=== PATIENT | female | born 1940 | race Caucasian/White ===

== ENCOUNTER 2017-07-21 15:12 | Inpatient (IN) | payer MEDICARE, BC ==
[2017-07-21] VITALS (9 sets, daily range): BP systolic 129–195; BP diastolic 72–85; PULSE 57–66; RESP 16–20; TEMP 98.2–98.8; O2SAT 93–99
[2017-07-21] MEDS ORDERED: SODIUM CHLOR 0.9% 1000 ML INJ 1,000 ML IV ONE (15:40)
[2017-07-21] MEDS ORDERED: NITROGLYCERIN 0.4 MG SL 25 TABS/BTL SL STA (15:40)
[2017-07-21] MEDS ORDERED: HEPARIN SODIUM - IV 10,000 UNITS/10 ML VIAL IV PUSH STA (15:40)
[2017-07-21] MEDS ORDERED: ASPIRIN 81 MG CHEW TAB PO STA (15:40)
[2017-07-21] MEDS ORDERED: NITROGLYCERIN 2% OINT 1 GM PACKET TOPICAL ONE (15:45)
[2017-07-21] MEDS ORDERED: SODIUM CHLORIDE 0.9% FLUSH 10 ML FLUSH IVF PRN (15:45)
[2017-07-21] MEDS: SODIUM CHLOR 0.9% 1000 ML INJ 1,000 ML IV SCH ×2 (15:47→21:36)
--- NOTE | 2017-07-21 15:51 | PD ---
HPI Chief Complaint: chest pain Time Seen by Provider: 15:21 Travel History International Travel<30 days: No Contact w/Intl Traveler<30days: No Traveled to known affect area: No History of Present Illness HPI 77-year-old female complains of chest pain. Patient states that she started having upper back pain last night which last about 2 hours. Patient states that the pain was dull aching pain and it is sharp pain, lasted 2 hours and resolved. Patient woke up this morning with heaviness across anterior chest, with radiation to the jaw and bilateral arms. Patient states that the discomfort has been persistent since this morning. Patient denies any nausea vomiting diaphoresis. Patient denies any coughing congestion fever chills. Patient denies any history of CAD. Patient has history of arrhythmia in the past. Patient denies history hypertension. Patient has history of diabetes under diet control. Patient has history of hyperlipidemia. Patient is a nonsmoker. Patient has history of hypothyroidism and taking Synthroid. Patient is on the Lexapro. Patient is taking Protonix for GI issues recently. Patient states that she has left low quadrant abdominal discomfort with some intermittent nausea vomiting last night. Patient has history of passing loose stool recently and awaiting GI consultation and endoscopy. [facility] Social History Tobacco Use: No Allergies-Medications (Allergen,Severity, Reaction): Coded Allergies: doxycycline (Verified Allergy, Mild, 07/21/17) Reported Meds & Prescriptions Reported Meds & Active Scripts Active Reported Synthroid (Levothyroxine Sodium) 75 Mcg Tab 75 Mcg PO DAILY Lexapro (Escitalopram Oxalate) 10 Mg Tab 10 Mg PO DAILY Protonix (Pantoprazole Sodium) 40 Mg Tab 40 Mg PO DAILY Review of Systems General / Constitutional: No: Fever Eyes: No: Visual changes HENT: No: Headaches Cardiovascular: Positive: Chest Pain or Discomfort Respiratory: No: Shortness of Breath Gastrointestinal: Positive: Nausea, Vomiting, Abdominal Pain Genitourinary: No: Dysuria Musculoskeletal: No: Pain Skin: No Rash Neurologic: No: Weakness Psychiatric: No: Depression Endocrine: No: Polydipsia Hematologic/Lymphatic: No: Easy Bruising Physical Exam Narrative GENERAL: Well-nourished, well-developed patient. SKIN: Focused skin assessment warm/dry. HEAD: Normocephalic. EYES: No scleral icterus. No injection or drainage. NECK: Supple, trachea midline. No JVD or lymphadenopathy. CARDIOVASCULAR: Regular rate and rhythm without murmurs, gallops, or rubs. RESPIRATORY: Breath sounds equal bilaterally. No accessory muscle use. GASTROINTESTINAL: Abdomen soft, non-tender, nondistended. MUSCULOSKELETAL: No cyanosis, or edema. BACK: Nontender without obvious deformity. No CVA tenderness. Neurologic exam normal. Data Data Last Documented VS Vital Signs Date Time Temp Pulse Resp B/P (MAP) Pulse Ox O2 Delivery O2 Flow Rate FiO2 07/21/17 15:45 60 20 173/72 (105) 96 Room Air 07/21/17 15:15 98.8 Orders Orders Electrocardiogram (07/21/17 15:35) Complete Blood Count With Diff (07/21/17 15:35) Comprehensive Metabolic Panel (07/21/17 15:35) Creatine Kinase (Cpk) (07/21/17 15:35) Troponin I (07/21/17 15:35) Prothrombin Time / Inr (Pt) (07/21/17 15:35) Act Partial Throm Time (Ptt) (07/21/17 15:35) Thyroid Stimulating Hormone (07/21/17 15:35) Chest, Single Ap (07/21/17 15:35) Iv Access Insert/Monitor (07/21/17 15:35) Ecg Monitoring (07/21/17 15:35) Oximetry (07/21/17 15:35) Oxygen Administration (07/21/17 15:40) Sodium Chlor 0.9% 1000 Ml Inj (Ns 1000 M (07/21/17 15:40) Sodium Chloride 0.9% Flush (Ns Flush) (07/21/17 15:45) Aspirin Chew (Aspirin Chew) (07/21/17 15:40) Nitroglycerin Sl (Nitrostat Sl) (07/21/17 15:40) Heparin Inj (Heparin Inj) (07/21/17 15:40) Nitroglycerin 2% Oint (Nitroglycerin 2% (07/21/17 15:45) Sodium Chlor 0.9% 1000 Ml Inj (Ns 1000 M (07/21/17 15:45) Admit Order (Ed Use Only) (07/21/17 15:43) Magnesium (Mg) (07/21/17 15:40) Labs Laboratory Tests Test 07/21/17 15:40 White Blood Count 10.4 TH/MM3 Red Blood Count 4.74 MIL/MM3 Hemoglobin 14.4 GM/DL Hematocrit 43.9 % Mean Corpuscular Volume 92.6 FL Mean Corpuscular Hemoglobin 30.3 PG Mean Corpuscular Hemoglobin Concent 32.7 % Red Cell Distribution Width 12.9 % Platelet Count 311 TH/MM3 Mean Platelet Volume 7.8 FL Neutrophils (%) (Auto) 73.5 % Lymphocytes (%) (Auto) 19.8 % Monocytes (%) (Auto) 5.2 % Eosinophils (%) (Auto) 1.0 % Basophils (%) (Auto) 0.5 % Neutrophils # (Auto) 7.6 TH/MM3 Lymphocytes # (Auto) 2.1 TH/MM3 Monocytes # (Auto) 0.5 TH/MM3 Eosinophils # (Auto) 0.1 TH/MM3 Basophils # (Auto) 0.1 TH/MM3 CBC Comment DIFF FINAL Differential Comment Prothrombin Time 10.8 SEC Prothromb Time International Ratio 1.1 RATIO Activated Partial Thromboplast Time 27.5 SEC Blood Urea Nitrogen 11 MG/DL Creatinine 0.76 MG/DL Random Glucose 135 MG/DL Total Protein 7.0 GM/DL Albumin 3.5 GM/DL Calcium Level 8.8 MG/DL Magnesium Level 2.1 MG/DL Alkaline Phosphatase 87 U/L Aspartate Amino Transf (AST/SGOT) 23 U/L Alanine Aminotransferase (ALT/SGPT) 22 U/L Total Bilirubin 0.9 MG/DL Sodium Level 140 MEQ/L Potassium Level 3.7 MEQ/L Chloride Level 102 MEQ/L Carbon Dioxide Level 28.8 MEQ/L Anion Gap 9 MEQ/L Estimat Glomerular Filtration Rate 74 ML/MIN Total Creatine Kinase 82 U/L Troponin I 1.10 NG/ML Thyroid Stimulating Hormone 3rd Gen 2.430 uIU/ML MDM Medical Decision Making Medical Screen Exam Complete: Yes Emergency Medical Condition: Yes Differential Diagnosis Differential diagnosis including STEMI, musculoskeletal, GI issues. Narrative Course 77-year-old female with chest pain. Patient has also has some GI symptoms recently. EKG with mild ST elevation anterior leads. I spoke with Dr. Eddy, molasses coloring operator on-call. Advised STEMI alert. Patient was given aspirin 325 mg by mouth, nitroglycerin paste 1 inch and chest wall, heparin 4000 units IV given. Patient will be transferred urgently to the main hospital for cardiac catheter procedure. Diagnosis Primary Impression: STEMI (ST elevation myocardial infarction) Qualified Codes: I21.02 - ST elevation (STEMI) myocardial infarction involving left anterior descending coronary artery Admitting Information Admitting Physician Requests: Admit Nick Darnell MD Jul 21, 2017 15:51
--- NOTE | 2017-07-21 15:56 | RADRPT ---
EXAM DATE/TIME: 07/21/2017 15:41 [place] COMPARISON: No previous studies available for comparison. INDICATIONS : Stemmi alert MEDICAL HISTORY : None. SURGICAL HISTORY : None. ENCOUNTER: Initial ACUITY: 1 day PAIN SCORE: 4/10 LOCATION: Bilateral chest FINDINGS: A single view of the chest demonstrates the lungs to be symmetrically aerated without evidence of mas s, infiltrate or effusion. The cardiomediastinal contours are unremarkable. Osseous structures are intact. CONCLUSION: No acute disease. Brad Blel MD on July 21, 2017 at 15:54 Board Certified Radiologist. This report was verified electronically.
[2017-07-21 15:58] LABS: AUTOMATED NEUTROPHIL # 7.6 TH/MM3 (1.8-7.7); BASOPHIL # 0.1 TH/MM3 (0-0.2); BASOPHIL % 0.5 % (0.0-2.0); EOSINOPHIL # 0.1 TH/MM3 (0-0.4); HEMATOCRIT 43.9 % (35.0-46.0); HEMO FLAGS DIFF FINAL; LYMPH % 19.8 % (9.0-44.0); LYMPHOCYTE # 2.1 TH/MM3 (1.0-4.8); MEAN CELL VOLUME 92.6 FL (80.0-100.0); MEAN CORPUSCULAR HEMOGLOBIN 30.3 PG (27.0-34.0); MEAN CORPUSCULAR HGB CONC 32.7 % (32.0-36.0); MONO % 5.2 % (0.0-8.0); NEUT % 73.5 % (16.0-70.0); PLATELET COUNT 311 TH/MM3 (150-450); RED BLOOD COUNT 4.74 MIL/MM3 (4.00-5.30); RED CELL DISTRIBUTION WIDTH 12.9 % (11.6-17.2); WHITE BLOOD COUNT 10.4 TH/MM3 (4.0-11.0)
[2017-07-21 16:06] LABS: CHLORIDE 102 MEQ/L (98-107); POTASSIUM 3.7 MEQ/L (3.5-5.1); SODIUM (NA) 140 MEQ/L (136-145)
[2017-07-21 16:11] LABS: ANION GAP 9 MEQ/L (5-15); APTT (PATIENT) 27.5 SEC (24.3-30.1); BICARBONATE 28.8 MEQ/L (21.0-32.0); INTERNATIONAL NORMALIZED RATIO 1.1 RATIO; PROTHROMBIN TIME - PATIENT 10.8 SEC (9.8-11.6)
[2017-07-21 16:12] LABS: BLOOD UREA NITROGEN 11 MG/DL (7-18)
[2017-07-21 16:14] LABS: ALT (GPT) 22 U/L (10-53); AST (GOT) 23 U/L (15-37)
[2017-07-21 16:15] LABS: GLOMERULAR FILTRATION RATE 74 ML/MIN (>89)
[2017-07-21 16:16] LABS: TOTAL BILIRUBIN ADULT 0.9 MG/DL (0.2-1.0)
[2017-07-21 16:17] LABS: ALKALINE PHOSPHATASE 87 U/L (45-117)
[2017-07-21 16:18] LABS: MAGNESIUM 2.1 MG/DL (1.5-2.5)
[2017-07-21] MEDS ORDERED: HEPARIN-NS/PF INJ 1,000 ML ONE (16:19)
[2017-07-21] MEDS ORDERED: MIDAZOLAM HCL 2 MG/2 ML VIAL ONE (16:19)
[2017-07-21] MEDS ORDERED: LEXA10TA PO (16:20)
[2017-07-21] MEDS ORDERED: LEVO.075 PO (16:20)
[2017-07-21] MEDS ORDERED: NITROGLYCERIN INJ 5 ML ONE (16:20)
[2017-07-21] MEDS ORDERED: HEPARIN SODIUM - IV 10,000 UNITS/10 ML VIAL ONE (16:20)
[2017-07-21] MEDS ORDERED: PROT40TA PO (16:20)
[2017-07-21 16:33] LABS: CREATINE KINASE 82 U/L (26-192)
[2017-07-21] MEDS ORDERED: BIVALIRUDIN 250 MG VIAL ONE (16:50)
--- NOTE | 2017-07-21 17:02 | MB ---
cc: CHACORTA ROLAND DATE OF CONSULTATION: 07/21/2017. REASON FOR CONSULTATION: Cardiac consultation for S-T elevation myocardial infarction. HISTORY OF PRESENT ILLNESS: This is a 77-year-old female who presented to the emergency department with acute onset of chest pain. She states that she developed a chest heaviness with radiation towards her jaw her back and bilateral arms early this morning. It became worse and she presented to the emergency room. There she had some S-T elevation anterior leads with T wave inversions. She denies any prior history of known heart disease, arrhythmia. She does have a history of diabetes. Given the electrocardiographic changes and ongoing chest pain symptoms, a STEMI alert was activated and she was transferred emergently for cardiac catheterization. PAST MEDICAL HISTORY: Past medical history as mentioned above: 1. Diabetes. ALLERGIES: DOXYCYCLINE. SOCIAL HISTORY: Denies any alcohol, tobacco or drug use. FAMILY HISTORY: Denies any family history of early coronary artery disease or sudden cardiac in the family. REVIEW OF SYSTEMS: The twelve-point review of systems was performed and is negative unless otherwise noted in the history of present illness. PHYSICAL EXAMINATION: VITAL SIGNS: Temperature 98, heart rate 60, blood pressure is 173/72 mmHg. GENERAL: Alert and oriented times three and in no acute distress. HEAD, EYES, EARS, NOSE, THROAT: The pupils are reactive to light and accommodation. Extraocular muscles are intact. NECK: No elevation in jugular venous distention. No thyromegaly or lymphadenopathy. No carotid bruits. LUNGS: Clear to auscultation bilaterally. CARDIOVASCULAR: Regular rate and rhythm without murmurs, rubs or gallops. ABDOMEN: Nontender, nondistended. Good bowel sounds. No hepatosplenomegaly. EXTREMITIES: Show no clubbing, cyanosis or edema. Good peripheral pulses. NEUROLOGICAL EXAMINATION: Cranial nerves are intact. Motor and sensory grossly intact. LABS: WBCs 10.4, hemoglobin 14.4, platelet count is 311,000. INR is 1.1. Sodium 140, potassium 3.7, BUN 11, creatinine 0.76. Troponin pending. ASSESSMENT: 1. S-T elevation myocardial infarction. 2. Diabetes. PLAN: Given the patient's ongoing symptoms and EKG, will transfer over emergently for cardiac catheterization and possible revascularization. Risks, benefits, and alternatives were discussed with the patient. The patient understood and consented to the procedure. MD VALERIO Salinas /4:33 PM /4:45 PM
[2017-07-21] MEDS ORDERED: CLOPIDOGREL 300 MG TAB ONE (17:11)
[2017-07-21] MEDS ORDERED: ONDANSETRON HCL 4 MG/2 ML VIAL IVP PRN (17:15)
[2017-07-21] MEDS ORDERED: MORPHINE SULFATE 4 MG/ML INJ IV PUSH PRN (17:15)
[2017-07-21] MEDS ORDERED: MISC INFORMATION XX ONE (17:15)
[2017-07-21] MEDS ORDERED: oxyCODONE/ACETAMINOPHEN 10 MG/325 MG TAB PO PRN (17:15)
[2017-07-21] MEDS ORDERED: BACITRACIN OINT 0.9 GM PKT TOP ONE (17:15)
[2017-07-21] MEDS ORDERED: TEMAZEPAM 15 MG CAP PO PRN (17:15)
[2017-07-21] MEDS ORDERED: LIDOCAINE 2% JELLY 30 ML TUBE TOP PRN (17:15)
[2017-07-21] MEDS ORDERED: oxyCODONE/ACETAMINOPHEN 5 MG/325 MG TAB PO PRN (17:15)
[2017-07-21] MEDS ORDERED: ASPIRIN 81 MG CHEW TAB PO SCH (17:15)
--- NOTE | 2017-07-21 17:41 | CATHPROC ---
[employer] HIS Report Study Information Study Number Admission Scheduled Start Study Start [id number] Jul 21 2017 3:47PM 07/21/2017 Jul 21 2017 4:19PM [place] [facility] Cardiac Catheterization Admit Source Facility Department Transfer in from another acute care facility [facility] Spa Consultant Physician and Clinical Staff Initial Justin Patten Financial Services Professional Kimmy Florian BSN Financial Services Professional Stamper, Catherine Recorder Tiffanie Durand,OPERATING ROOM TECH TECH2 Scrub Hosterman, Les,RT(R) Procedures Performed Procedure Location (Site) Vessel Name Coronary Angiograms LCA Left Coronary Coronary Angiograms RCA Right Coronary PTCA DIAG1 Ost Left Coronary PTCA LAD Mid Left Coronary Stent LAD Mid Left Coronary Wire insertion Fem Art (right) Femoral Art Wire insertion Radial (right) Radial Art. Equipment Time Paper Final Inspector Description Size Mfg Part Number Used/Scraped COPILOT VALVE, BLEEDBACK [id number] 16:24 [employer] Used CONTROL *[id number] COPILOT VALVE, BLEEDBACK [id number] 16:48 [employer] Used CONTROL *[id number] TRANSDUCER, TRUWAVE [id number] 16:44 JAMES RODRIGUEZ * Used W/STOCKCOCK *[id number] 17:04 [employer] BALLOON, 2.0 8MM EMERGE MR 2.0 8MM Used *[id number] [phone] *[id number] *[id number] [phone] *[id number] 16:44 [employer] (Inspect Manager) INDUSTRIES PACK, CCL CUSTOM * Used *[id number] 16:44 [employer] SUPPORT, ARTERIAL ADULT 78228 *[id number] Used [id number] 16:44 [employer] (Inspect Manager) PACER PEN, SKIN DUAL W/ RULER * Used *[id number] 16:50 [employer] BALLOON, 2.5 X 12MM EUPHORA 12MM Used *[id number] 17:00 [employer] STENT, 2.5 18 INTEGRITY 2.5 18 Used *[id number] 16:59 [employer] 30 RISA INDEFLATOR Used *[id number] BAND, RADIAL COMPRESSION TR [id number] 17:11 [employer] MEDICAL 24CM Used SHORT 24 *[id number] SHEATH, FR6 RADIAL PRELUDE 16:44 [employer] FR 6 [id number] Used EASE 11CM [id number] 16:44 [employer] WIRE, EXCHANGE 260CM 3MMJ 260CM Used *[id number] 16:24 [employer] OMNIPAQUE, 350 MG, 150ML 150ML [id number] Used [id number] 16:44 [employer] BLANKET,WARM AIR CCL * Used *[id number] WIRE, RUNTHROUGH NS FLOPPY [id number] 16:51 [employer] 180CM Used .014 180CM *[id number] Equipment Model, Serial, Lot Number and Expiration Data Description Model Number Serial Number Lot Number Expiration Date BALLOON, 2.0 8MM EMERGE MR [id number] 01-27-2020 STENT, 2.5 18 INTEGRITY [id number] 02-14-2019 History: Allergies Allergy Reaction doxycycline History: Risk Factors Family History of Hypertension Dyslipidemia Previous SC Previous Heart Failure Premature CAD Yes Yes No No No Prior Valve Prior PCI Prior CABG Surgery No No No Cerebrovascular Peripheral Artery Chronic Lung On Dialysis Diabetes Disease Disease Disease No No No No No History: Stress Tests Stress or Imaging Studies Performed No History: Other Disease Selection Items Depression Gerd History: Other Current Smoker No Labs Hgb (g/dl) Hct (%) RBC (MIL/MM3) WBC (l/cumm) Platelets (thousands) 11.60-17.00 35.00-51.00 4.00-5.90 4.00-11.00 150.00-450.00 14.4 43.9 4.7 10.4 311 Glucose (mg/dl) BUN (mg/dl) Creatinine (mg/dl) BUN:Creatinine (1:x) 74.00-106.00 7.00-18.00 0.50-1.30 10.00-20.00 135 11 0.7 15.7 Na (meq/l) K (meq/l) Cl (meq/l) CO2 (mmol/L) Ca (mg/dl) 136.00-145.00 3.50-5.10 98.00-107.00 21.00-32.00 8.50-10.10 140 3.7 102 28.8 8.8 PT (sec) PTT (sec) INR (PTT:PT) 9.80-11.60 24.30-30.10 0.90-1.10 10.8 27.5 1.1 Troponin I (ng/ml) CPK (u/l) CPK-MB (ng/ML) 0.02-0.05 26.00-308.00 0.50-3.60 1.1 82 Not Drawn Medication Medication Total Dose (Bolus/Oral) Medication Total Dosage/Unit 1% XYLOCAINE 20 mL ANGIOMAX BOLUS 9 mL FENTANYL 50 mcg NTG (IC) 500 mcg PLAVIX 600 mg VERSED 2 mg Medications (Bolus/Oral) Medication Time Given Dosage/Unit Administered By Reason VERSED 07/21/2017 4:41:25 PM 2 mg Catherine Zhong 2 mg VERSED given in lab by Catherine Zhong in Right Antecubital via Peripheral IV. Ordered by Justin Eddy. 1% XYLOCAINE 07/21/2017 4:41:40 PM 20 mL Justin Eddy 20 mL 1% XYLOCAINE given in lab by Justin Eddy in Right Radial via Subcutaneous. Ordered by Justin Eddy. FENTANYL 07/21/2017 4:43:00 PM 50 mcg Roderick Zhongrra 50 mcg FENTANYL given in lab by Catherine Zhong in Right Antecubital via Peripheral IV. Ordered by Justin Chambers. NTG (IC) 07/21/2017 4:43:53 PM 100 mcg Justin Eddy 100 mcg NTG (IC) given in lab by Justin Eddy in Right Radial via Intra-arterial. Ordered by Justin Eddy. ANGIOMAX BOLUS 07/21/2017 4:53:04 PM 9 mL Roderick Zhongrra 9 mL ANGIOMAX BOLUS given in lab by Catherine Zhong in Right Antecubital via Peripheral IV. Ordered b y Justin Eddy. NTG (IC) 07/21/2017 5:05:55 PM 200 mcg Justin Eddy 200 mcg NTG (IC) given in lab by Justin Eddy via Intra-coronary. Ordered by Justin Eddy. NTG (IC) 07/21/2017 5:09:51 PM 200 mcg Justin Eddy 200 mcg NTG (IC) given in lab by Justin Eddy via Intra-coronary. Ordered by Justin Eddy. PLAVIX 07/21/2017 5:19:34 PM 600 mg Justin Eddy 600 mg PLAVIX given in lab by Justin Eddy via Oral. Ordered by Justin Eddy. Medication (Drip) Medication Time Given Dosage/Unit Concentration/Unit Diluent (ml) Solution ANGIOMAX DRIP 07/21/2017 4:54:11 PM 1.752 mg/kg/hr 250 mg 50 NaCl .9 1.752 mg/kg/hr ANGIOMAX DRIP given in lab by Kimmy Florian BSN in Right Antecubital via Periph eral IV. Pump/Drip Flow = 21.2 ml/hr using NaCl .9 with a concentration of 250 mg in 50 ml. Ordered by Justin Eddy. IV Solutions 07/21/2017 4:39:03 PM 0 mL (IV) 500 NaCl .9 IV Solutions given in lab by Catherine Zhong in Right Antecubital via Peripheral IV. Pump/Drip Flow = 20 ml/hr using NaCl .9. Ordered by Justin Eddy. Initial Case Assessment Cardiovascular HR Rhythm NIBP Chest Pain 64 sr 157/75 0 Circulatory - Right Pulses Dorsalis Pedis Femoral Radial 3 3 3 Scale (0,1,2,3,4,d) Scale (0,1,2,3,4,d) Neurological State Oriented to time-place- Alert Moves all extremities person Respiration - General Respiration Rate SpO2 (%) O2 (lpm) (B/min) 11 97 2 Final Case Assessment Cardiovascular HR Rhythm NIBP Chest Pain 57 sb 168/75 0 Circulatory - Right Pulses Dorsalis Pedis Femoral Radial 3 3 3 Scale (0,1,2,3,4,d) Scale (0,1,2,3,4,d) Neurological State Oriented to time-place- Alert Moves all extremities person Respiration - General Respiration Rate SpO2 (%) O2 (lpm) (B/min) 12 96 2 Chronological Log Time Study Chronological Log 16:25:29 MD arrived. 16:30:05 Patient arrived directly from PO ER. 16:30:17 Patient Name, D.O.B, / Armband Verified By R.N. 16:30:19 Consent signed by the physician and the patient and verified by the Spa Consultant staff. 16:30:20 Pre-op and post- op instructions given; patient acknowledges understanding of instructions. 16:30:21 Verbal Stimulation=2 Physical Stimulation=2 Airway=2 Respiration=2 TOTAL=8. (0=absent, 1=li mited, 2=present) Vitals capture started with the following parameters, Patient=Adult, Interval=5 min, Initial Pr qilgwg=033 mmHg, 16:38:34 Deflation Rate=5 mmHg, Cuff placed on Left Arm 16:38:50 Presedation assessment performed by Spa Consultant RN. 16:38:52 Patient has been NPO for More than 6Hrs. 16:38:54 Skin Breakdown-none 16:38:56 Disposable Defibrillator Pads Placed On Patient. 16:38:57 Tisha Prominences Protected 16:39:00 A # 18 IV was noted in the Antecubital (right). Grade = patent 16:39:02 A # 20 IV was noted in the Antecubital (left). Grade = patent IV Solutions given in lab by Catherine Zhong in Right Antecubital via Peripheral IV. Pump/Drip Flow = 20 ml/hr using 16:39:03 NaCl .9. Ordered by Justin Eddy. 16:39:04 History and physical on the chart or being dictated. Assessment: Initial Case, HR=64 BPM, Rhythm=sr, RRWV=860/75 mmhg, Chest Pain=0 Right Pulses: Lucian Ped=3, Femoral=3, Radial=3 16:39:07 Neurological: State=Alert, Ox3, GUO Respiration: Resp=11 B/min, SpO2=97 %, O2=2 lpm 16:39:12 Reference ECG taken 16:39:18 HR=62 bpm, TUTB=743/75 mmhg, SpO2=96.0 %, Resp=14 B/min, Pain=0, Marcos=2 Time Out. Correct patient, correct procedure, correct physician, power injector loaded, or not loaded with contrast with 16:40:09 surgical team present. Time Out Concurred by MD and individual staff in procedure. 16:40:50 Right groin and right wrist prepped with 2% chlorhexidine, and draped after a 3 min. waitin g time. 16:41:25 2 mg VERSED given in lab by Catherine Zhong in Right Antecubital via Peripheral IV. Ordered by Justin Eddy. 16:41:38 Case Start 16:41:40 20 mL 1% XYLOCAINE given in lab by Justin Eddy in Right Radial via Subcutaneous. Ordered by Justin Eddy. 16:42:29 Pressure channel 1 zeroed. 16:43:00 50 mcg FENTANYL given in lab by Catherine Zhong in Right Antecubital via Peripheral IV. Ord ered by Justin Eddy. 16:43:19 Access site was Radial Artery. Right 16:43:53 100 mcg NTG (IC) given in lab by Justin Eddy in Right Radial via Intra-arterial. Ordered by Justin Eddy. 16:44:21 HR=67 bpm, JZCO=604/58 mmhg, SpO2=95.0 %, Resp=6 B/min A SHEATH, FR6 RADIAL PRELUDE EASE 11CM FR 6 was advanced into the Radial (right) using the Perc utaneous 16:44:36 technique. 16:45:07 A JR 5.0 INFINITI CATHETER FR 5 was advanced over a wire. contrast was used for injections. Recorded Pressure: LV, HR=66, Condition=Condition 1 16:45:10 (Left Ventricle) LV 107/1/5 Recorded Pressure: LV, Ao, HR=66, Condition=Condition 1 16:45:11 (Left Ventricle) LV 106/1/5, (Aorta) Ao 106/51/75 16:46:00 The RCA was injected and visualized at various angles. OMNIPAQUE, 350 MG, 150ML 150ML used . After removing the current catheter a AL 2 GUIDE CATHETER FR 6 was advanced over a WIRE, EXCHAN GE 260CM 16:46:31 3MMJ 260CM. 16:49:12 HR=68 bpm, NIBP=95/52 mmhg, SpO2=92.0 %, Resp=11 B/min 16:49:58 The LCA was injected and visualized at various angles. OMNIPAQUE, 350 MG, 150ML 150ML used . 16:50:39 A WIRE, EXCHANGE 260CM 3MMJ 260CM was inserted via Radial (right). 9 mL ANGIOMAX BOLUS given in lab by Catherine Zhong in Right Antecubital via Peripheral IV. Ord ered by Surjit, 16:53:04 Justin. 16:54:09 HR=63 bpm, NIBP=99/38 mmhg, SpO2=92.0 %, Resp=8 B/min 1.752 mg/kg/hr ANGIOMAX DRIP given in lab by Kimmy Florian BSN in Right Antecubital via Peripheral IV. 16:54:11 Pump/Drip Flow = 21.2 ml/hr using NaCl .9 with a concentration of 250 mg in 50 ml. Ordered by Justin Miranda. 16:54:33 Wire removed, unable to cross lesion. After removing the current catheter a XBLAD 3.5 GUIDE CATHETER FR 6 was advanced over a WIRE, E XCHANGE 16:55:45 260CM 3MMJ 260CM. 16:56:37 A WIRE, RUNTHROUGH NS FLOPPY .014 180CM 180CM was inserted via Fem Art (right). A BALLOON, 2.5 X 12MM EUPHORA 12MM was inserted over WIRE, RUNTHROUGH NS FLOPPY .014 180CM 180C M via 16:58:21 the LAD Mid. A BALLOON, 2.5 X 12MM EUPHORA 12MM over a WIRE, RUNTHROUGH NS FLOPPY .014 180CM 180CM in the LA D Mid 16:58:28 was inflated using a 30 RISA INDEFLATOR at 8 risa for 15 sec. A BALLOON, 2.5 X 12MM EUPHORA 12MM over a WIRE, RUNTHROUGH NS FLOPPY .014 180CM 180CM in the LA D Mid 16:58:55 was inflated using a 30 RISA INDEFLATOR at 8 risa for 15 sec. 16:59:06 HR=64 bpm, QJQB=726/59 mmhg, SpO2=95 %, Resp=20 B/min, Pain=0, Marcos=2 16:59:19 Balloon Removed. An STENT, 2.5 18 INTEGRITY 2.5 18 Bare Metal Stent was inserted through a XBLAD 3.5 [address]A TER FR 6 over 17:00:31 a WIRE, RUNTHROUGH NS FLOPPY .014 180CM 180CM. A STENT, 2.5 18 INTEGRITY 2.5 18 was deployed using a 30 RISA INDEFLATOR at 14 atmospheres for 1 0 seconds in 17:01:43 the LAD Mid. 17:02:35 Delivery device removed A BALLOON, 2.0 8MM EMERGE MR 2.0 8MM was inserted over WIRE, RUNTHROUGH NS FLOPPY .014 180CM 18 0CM via 17:04:02 the DIAG1 Ost. A BALLOON, 2.0 8MM EMERGE MR 2.0 8MM over a WIRE, RUNTHROUGH NS FLOPPY .014 180CM 180CM in the DIAG1 17:04:26 Ost was inflated using a 30 RISA INDEFLATOR at 14 risa for 40 sec. 17:04:41 HR=58 bpm, NAMV=488/81 mmhg, SpO2=96.0 %, Resp=15 B/min 17:05:46 Balloon Removed. 17:05:55 200 mcg NTG (IC) given in lab by Justin Eddy via Intra-coronary. Ordered by Layla Eddy A BALLOON, 2.5 X 12MM EUPHORA 12MM was inserted over WIRE, RUNTHROUGH NS FLOPPY .014 180CM 180C M via 17:07:17 the DIAG1 Ost. A BALLOON, 2.5 X 12MM EUPHORA 12MM over a WIRE, RUNTHROUGH NS FLOPPY .014 180CM 180CM in the DI AG1 17:08:33 Ost was inflated using a 30 RISA INDEFLATOR at 8 risa for 45 sec. 17:09:20 HR=59 bpm, LNAY=210/78 mmhg, SpO2=97.0 %, Resp=17 B/min 17:09:30 Balloon Removed. 17:09:51 200 mcg NTG (IC) given in lab by Justin Eddy via Intra-coronary. Ordered by Layla Eddy 17:10:53 Wire and Guide catheter removed 17:11:45 Case End Radial Compression Device Used. 15 mLs of air placed in BAND, RADIAL COMPRESSION TR SHORT 24 24 CM. Affected 17:12:54 hand 95 % O2 saturation. Assessment: Final Case, HR=57 BPM, Rhythm=sb, QQOF=242/75 mmhg, Chest Pain=0 Right Pulses: Lucian Ped=3, Femoral=3, Radial=3 17:13:52 Neurological: State=Alert, Ox3, GUO Respiration: Resp=12 B/min, SpO2=96 %, O2=2 lpm 17:15:00 HR=57 bpm, APEJ=220/75 mmhg, SpO2=97.0 %, Resp=21 B/min, Pain=2, Marcos=2, Comment=right ar m pain of 2 17:19:05 Vitals capture stopped. 17:19:34 600 mg PLAVIX given in lab by Justin Eddy via Oral. Ordered by Justin Eddy. 17:28:37 Patient moved to bed. 17:30:18 Patient transported to [facility] End Study - Contrast Media Used In Study Contrast Total Opened (mL) Total Used (mL) Total Wasted (mL) Omnipaque 110 110 0 End Study - Maximum Contrast Load Max Contrast Load (mL) 432.1 End Study - Radiation Exposure Fluoro Time (minutes) 7.9 End Study - Sheaths Sheaths Pulled By Sheath Hold Time (min) Les Valdez End Study - Patient Disposition Complications Transferred To Interventional Outcome No Telemetry Bed successful
[2017-07-21] MEDS ORDERED: cloNIDine HCL 0.1 MG TAB PO PRN (18:00)
[2017-07-21] MEDS ORDERED: hydrALAZINE HCL 20 MG/ML VIAL IV PUSH PRN (18:00)
[2017-07-21] MEDS ORDERED: BIVALIRUDIN INJ 250 MG in SODIUM CHLORIDE 0.9% INJ 50 ML IV SCH (18:00)
--- NOTE | 2017-07-21 18:02 | MA ---
cc: CHACORTA ROLAND DATE: 07/21/2017. INDICATIONS FOR THE PROCEDURE: S-T elevation myocardial infarction. PROCEDURE PERFORMED: 1. Fluoroscopy with interpretation 2. Left heart catheterization. 3. Coronary angiography. 4. Percutaneous intervention with bare-metal stent to the mid left anterior descending coronary artery. 5. Percutaneous transluminal angioplasty of the first diagonal branch. METHOD: Risks, benefits, and alternatives were discussed with the patient and the patient understood and consented to the procedure. DESCRIPTION OF THE PROCEDURE IN DETAIL: The patient was brought into the catheterization lab. The patient was placed on the catheterization table. The right wrist was prepped and draped in the usual sterile fashion. The right wrist was anesthetized with 2% lidocaine. The right radial artery was cannulated. A 6-[place]ine[place] 7-cm sheath was placed without difficulty. LEFT HEART CATHETERIZATION: Intraventricular hemodynamics measured 106/5 mmHg. CORONARY ANGIOGRAPHY: 1. Left main coronary artery has a 30% distal stenosis. 2. Left anterior descending coronary artery is a steep angulated proximal takeoff with 30% to 40% stenosis. The mid left anterior descending coronary artery has 99% thrombotic subtotal occlusion. There is 30% stenosis in a moderate sized diagonal branch. The remainder of the left anterior descending coronary artery has mild luminal irregularities. 3. Left circumflex has 30% stenosis proximally in the remainder of the obtuse marginal branch and sub-branch had mild luminal irregularities. 4. Right coronary artery is the dominant vessel giving rise to the posterior descending branch. The right coronary artery has mild luminal irregularities throughout its entire proximal to mid course. PERCUTANEOUS INTERVENTION: A 6-[place]ine[place] XBLAD 3.5 guide catheter was engaged in the left main coronary artery and a 0.014 inch 180-cm [employer] run-through wire was navigated down to the distal left anterior descending coronary artery. A 2.5 x 12 mm RX Euphora balloon was advanced down the mid left anterior descending coronary artery and deployed. Repeat angiography still shows severe residual stenosis. A 2.5 x 18 mm RX bare-metal Integrity stent was advanced down to the mid left anterior descending coronary artery and deployed. There was some plaque shifting into the proximal diagonal branch. The wire was redirected down the diagonal branch and a 2.0 x 8 mm Euphora balloon was advanced through the side strut and deployed for prolonged inflation. Intra-arterial nitroglycerin was administered. A 2.5 x 12 mm RX balloon was advanced to the proximal diagonal branch and deployed for prolonged inflation. Repeat angiography showed no residual stenosis, GARLAND III flow in both the left anterior descending and diagonal branches. CONCLUSIONS: 1. Successful percutaneous intervention of a subtotally thrombotically occluded left anterior descending coronary artery with bare-metal stent. 2. Successful percutaneous angioplasty of the first diagonal branch. PLAN: 1. The patient will be monitored closely for any post- procedural complications. 2. Initiate on aggressive medical therapy. 3. Will get a 2-D echocardiogram. 4. Will trend any troponin or CK elevation. 5. Anticipate hopeful discharge in the next 24 to 48 hours if she does well. MD ALESSANDRA Salinas/NAOMI /5:18 PM /5:35 PM
[2017-07-21] MEDS: LISINOPRIL 10 MG TAB PO SCH (18:44)
[2017-07-21] MEDS ORDERED: ATORVASTATIN 10 MG TAB PO SCH (21:00)
[2017-07-21] MEDS: METOPROLOL TARTRATE 25 MG TAB PO SCH (21:34)
[2017-07-21] MEDS: ACETAMINOPHEN 325 MG TAB PO PRN (21:34)
[2017-07-22] VITALS (15 sets, daily range): BP systolic 108–126; BP diastolic 60–62; PULSE 54–65; RESP 16–18; TEMP 97.9–98.1; O2SAT 90–95
[2017-07-22] MEDS: ACETAMINOPHEN 325 MG TAB PO PRN (03:54)
[2017-07-22 06:30] LABS: AUTOMATED NEUTROPHIL # 5.6 TH/MM3 (1.8-7.7); BASOPHIL % 0.4 % (0.0-2.0); EOSINOPHIL # 0.1 TH/MM3 (0-0.4); EOSINOPHIL % 1.6 % (0.0-4.0); HEMATOCRIT 38.2 % (35.0-46.0); HEMO FLAGS DIFF FINAL; LYMPH % 21.3 % (9.0-44.0); LYMPHOCYTE # 1.7 TH/MM3 (1.0-4.8); MEAN CELL VOLUME 94.3 FL (80.0-100.0); MEAN CORPUSCULAR HEMOGLOBIN 31.6 PG (27.0-34.0); MEAN CORPUSCULAR HGB CONC 33.5 % (32.0-36.0); MONO % 7.1 % (0.0-8.0); NEUT % 69.6 % (16.0-70.0); PLATELET COUNT 247 TH/MM3 (150-450); RED BLOOD COUNT 4.05 MIL/MM3 (4.00-5.30); RED CELL DISTRIBUTION WIDTH 13.5 % (11.6-17.2); WHITE BLOOD COUNT 8.1 TH/MM3 (4.0-11.0)
[2017-07-22 07:02] LABS: BICARBONATE 27.8 MEQ/L (21.0-32.0); POTASSIUM 3.9 MEQ/L (3.5-5.1)
[2017-07-22 07:06] LABS: HDL CHOLESTEROL 54.8 MG/DL (40.0-60.0)
[2017-07-22] MEDS: LISINOPRIL 10 MG TAB PO SCH (08:29)
[2017-07-22] MEDS: METOPROLOL TARTRATE 25 MG TAB PO SCH (08:30)
--- NOTE | 2017-07-22 08:57 | PD.CARD.PN ---
Subjective Subjective Remarks The patient is feeling much better since her PCI yesterday. She denies any further symptoms and feels well. No chest pain, jaw pain, or shortness of breath. Objective Medications Current Medications Medications (Trade) Dose Ordered Sig/Krystyna Route Start Time Stop Time Status Last Admin (NS Flush) 2 ml UNSCH PRN IVF 07/21/17 15:45 Sodium Chloride 1,000 ml @ 100 mls/hr Q10H IV 07/21/17 15:45 07/21/17 21:36 (Tylenol) 325 mg Q4H PRN PO 07/21/17 17:15 07/22/17 03:54 (Percocet 5-325 Mg) 1 tab Q4H PRN PO 07/21/17 17:15 (Percocet 10-325 Mg) 1 tab Q4H PRN PO 07/21/17 17:15 (Morphine Inj) 2 mg Q30M PRN IV PUSH 07/21/17 17:15 (Restoril) 15 mg HS PRN PO 07/21/17 17:15 07/21/17 21:35 (Zofran Inj) 4 mg Q6H PRN IVP 07/21/17 17:15 07/21/17 17:57 (Aspirin Chew) 81 mg DAILY PO 07/21/17 17:15 (Plavix) 75 mg DAILY PO 07/22/17 09:00 07/22/17 08:30 (Xylocaine 2% Jelly) 1 applic UNSCH X1 PRN TOP 07/21/17 17:15 07/22/17 17:14 (Lopressor) 12.5 mg BID PO 07/21/17 21:00 07/22/17 08:30 (Lipitor) 40 mg HS PO 07/21/17 21:00 07/21/17 21:33 (Catapres) 0.2 mg Q6H PRN PO 07/21/17 18:00 (Apresoline Inj) 10 mg Q30M PRN IV PUSH 07/21/17 18:00 (Prinivil) 10 mg DAILY PO 07/21/17 18:00 07/22/17 08:29 Vital Signs / I&O Vital Signs Date Time Temp Pulse Resp B/P (MAP) Pulse Ox O2 Delivery O2 Flow Rate FiO2 07/22/17 07:15 56 07/22/17 07:01 97.9 58 18 112/62 (79) 95 07/22/17 06:41 65 07/22/17 05:00 56 07/22/17 04:00 65 07/22/17 03:00 97.9 64 18 126/62 (83) 90 07/22/17 03:00 57 07/22/17 02:00 56 07/22/17 01:00 55 07/22/17 00:00 57 07/21/17 23:00 57 07/21/17 23:00 98.2 59 16 129/72 (91) 97 07/21/17 22:00 58 07/21/17 21:00 62 07/21/17 20:00 60 07/21/17 19:00 98.3 66 18 142/72 (95) 93 07/21/17 19:00 63 07/21/17 18:04 98.2 60 16 183/82 (115) 96 07/21/17 15:55 16 07/21/17 15:45 60 20 173/72 (105) 96 Room Air 07/21/17 15:30 64 20 185/85 (118) 97 Room Air 07/21/17 15:20 96 Room Air 07/21/17 15:19 63 96 Room Air 07/21/17 15:15 98.8 62 18 195/83 (120) 99 I/O 07/21/17 07/21/17 07/21/17 07/22/17 07/22/17 07/22/17 07:00 15:00 23:00 07:00 15:00 23:00 Intake Total 1730 ml 240 ml Output Total 700 ml Balance 1030 ml 240 ml Intake Oral 300 ml IV Total 1430 ml 240 ml Output Urine Total 700 ml # Voids 2 Physical Exam GENERAL: Well-developed well-nourished. In no acute distress. NECK: No carotid bruits. No JVD. CARDIOVASCULAR: Regular rate and rhythm. No murmur appreciated. RESPIRATORY: No accessory muscle use. Clear to auscultation. Breath sounds equal bilaterally. MUSCULOSKELETAL: No clubbing or cyanosis. No edema. NEUROLOGICAL: Awake and alert. Normal speech. Laboratory Laboratory Tests Test 07/21/17 15:40 07/22/17 04:40 White Blood Count 10.4 TH/MM3 8.1 TH/MM3 Red Blood Count 4.74 MIL/MM3 4.05 MIL/MM3 Hemoglobin 14.4 GM/DL 12.8 GM/DL Hematocrit 43.9 % 38.2 % Mean Corpuscular Volume 92.6 FL 94.3 FL Mean Corpuscular Hemoglobin 30.3 PG 31.6 PG Mean Corpuscular Hemoglobin Concent 32.7 % 33.5 % Red Cell Distribution Width 12.9 % 13.5 % Platelet Count 311 TH/MM3 247 TH/MM3 Mean Platelet Volume 7.8 FL 7.9 FL Neutrophils (%) (Auto) 73.5 % 69.6 % Lymphocytes (%) (Auto) 19.8 % 21.3 % Monocytes (%) (Auto) 5.2 % 7.1 % Eosinophils (%) (Auto) 1.0 % 1.6 % Basophils (%) (Auto) 0.5 % 0.4 % Neutrophils # (Auto) 7.6 TH/MM3 5.6 TH/MM3 Lymphocytes # (Auto) 2.1 TH/MM3 1.7 TH/MM3 Monocytes # (Auto) 0.5 TH/MM3 0.6 TH/MM3 Eosinophils # (Auto) 0.1 TH/MM3 0.1 TH/MM3 Basophils # (Auto) 0.1 TH/MM3 0.0 TH/MM3 CBC Comment DIFF FINAL DIFF FINAL Differential Comment Prothrombin Time 10.8 SEC Prothromb Time International Ratio 1.1 RATIO Activated Partial Thromboplast Time 27.5 SEC Blood Urea Nitrogen 11 MG/DL 10 MG/DL Creatinine 0.76 MG/DL 0.63 MG/DL Random Glucose 135 MG/DL 94 MG/DL Total Protein 7.0 GM/DL Albumin 3.5 GM/DL Calcium Level 8.8 MG/DL 8.1 MG/DL Magnesium Level 2.1 MG/DL Alkaline Phosphatase 87 U/L Aspartate Amino Transf (AST/SGOT) 23 U/L Alanine Aminotransferase (ALT/SGPT) 22 U/L Total Bilirubin 0.9 MG/DL Sodium Level 140 MEQ/L 141 MEQ/L Potassium Level 3.7 MEQ/L 3.9 MEQ/L Chloride Level 102 MEQ/L 106 MEQ/L Carbon Dioxide Level 28.8 MEQ/L 27.8 MEQ/L Anion Gap 9 MEQ/L 7 MEQ/L Estimat Glomerular Filtration Rate 74 ML/MIN 92 ML/MIN Total Creatine Kinase 82 U/L 114 U/L Troponin I 1.10 NG/ML Thyroid Stimulating Hormone 3rd Gen 2.430 uIU/ML Triglycerides Level 73 MG/DL Cholesterol Level 195 MG/DL LDL Cholesterol 126 MG/DL HDL Cholesterol 54.8 MG/DL Cholesterol/HDL Ratio 3.55 RATIO Imaging Last 24 hours Impressions Chest X-Ray 07/21/17 1535 Signed Impressions: Service Date/Time: Friday, July 21, 2017 15:41 - CONCLUSION: No acute disease. Brad Bell MD Assessment and Plan Assessment and Plan 77-year-old female with past medical history of diabetes mellitus who presented with chest pain, STEMI alert with successful PCI of 99% LAD lesion and percutaneous angioplasty of first diagonal branch. STEMI s/p PCI: Now asymptomatic. Continue aspirin, Plavix, metoprolol, statin. Echocardiogram. Han Mg Jul 22, 2017 08:57
[2017-07-22] MEDS ORDERED: CLOPIDOGREL 75 MG TAB PO SCH (09:00)
[2017-07-22] MEDS ORDERED: LIPI10TA PO (09:36)
[2017-07-22] MEDS ORDERED: METO25TA3 PO (09:36)
[2017-07-22] MEDS ORDERED: ASPI81 PO (09:36)
[2017-07-22] MEDS ORDERED: PLAV75TA29 PO (09:36)
--- NOTE | 2017-07-22 10:28 | HHI.DS ---
Discharge Summary Admission Date Jul 21, 2017 at 15:47 Discharge Date: Jul 22, 2017 Admitting Diagnosis STEMI Procedures [facility] with PCI LAD BMS CBC/BMP: 07/22/17 0440 07/22/17 0440 Significant Findings Laboratory Tests Test 07/21/17 15:40 07/22/17 04:40 Neutrophils (%) (Auto) 73.5 % (16.0-70.0) Random Glucose 135 MG/DL (74-106) Estimat Glomerular Filtration Rate 74 ML/MIN (>89) Troponin I 1.10 NG/ML (0.02-0.05) Calcium Level 8.1 MG/DL (8.5-10.1) LDL Cholesterol 126 MG/DL (0-99) PE at Discharge GENERAL: SKIN: Warm and dry. HEAD: Normocephalic. EYES: No scleral icterus. No injection or drainage. NECK: Supple, trachea midline. No JVD or lymphadenopathy. CARDIOVASCULAR: Regular rate and rhythm without murmurs, gallops, or rubs. RESPIRATORY: Breath sounds equal bilaterally. No accessory muscle use. GASTROINTESTINAL: Abdomen soft, non-tender, nondistended. MUSCULOSKELETAL: No cyanosis, or edema. BACK: Nontender without obvious deformity. No CVA tenderness. Hospital Course STEMI s/p PCI LAD BMS. no complaints doing well Pt Condition on Discharge: Good Discharge Disposition: Discharge Home Discharge Instructions DIET: Follow Instructions for: Heart Healthy Diet, Diabetic Diet Activities you can perform: Weight Bearing as Graciela Activities to avoid: Lifting/Bending Additional Information FU cardiology in 2 weeks Justin Eddy MD Jul 22, 2017 10:28
--- NOTE | 2017-07-22 12:45 | EKG ---
Date Performed: 07/21/2017 Time Performed: 15:19:23 PTAGE: 77 years EKG: Anteroseptal myocardial infarction of undetermined age Sinus bradycardia Clinical correlati on is recommended NO PREVIOUS TRACING DOCTOR: Marcial Garner Interpretating Date/Time 07/22/2017 12:44:15
--- NOTE | 2017-07-22 12:46 | EKG ---
Date Performed: 07/22/2017 Time Performed: 06:32:50 PTAGE: 77 years EKG: Anteroseptal myocardial infarction of undetermined age Abnormal ECG PREVIOUS TRACING 07/21/17 Since previous tracing, the T-wave inversion in lead V2 is slightly m ore prominent, otherwise no other changes. Clinical correlation is recommended. Previous tracings west or to these two tracings would be helpful. DOCTOR: Marcial Garner Interpretating Date/Time 07/22/2017 12:45:34
[2017-07-22] MEDS ORDERED: IOHEXOL 350 MG/ML 50 ML BTL (for Cath Lab) OTHER ONE (12:47)
[2017-07-22] MEDS ORDERED: IOHEXOL 350 MG/ML 100 ML BTL (for Cath Lab) OTHER ONE (12:47)
--- NOTE | 2017-07-22 14:12 | ECHRPT ---
Indication: chest pain CONCLUSIONS The left ventricular systolic function is normal with an estimated ejection fraction in the range of 55-60%. Mild aortic valve regurgitation. There is trace tricuspid valve regurgitation. BP: / HR: Rhythm: MEASUREMENTS (Male / Female) Normal Values Technical Quality: 2D ECHO LV Diastolic Diameter PLAX 4.1 cm 4.2 - 5.9 / 3.9 - 5.3 cm LV Systolic Diameter PLAX 2.7 cm IVS Diastolic Thickness 1.1 cm 0.6 - 1.0 / 0.6 - 0.9 cm LVPW Diastolic Thickness 1.0 cm 0.6 - 1.0 / 0.6 - 0.9 cm LV Relative Wall Thickness 0.5 RV Internal Dim ED PLAX 2.5 cm LVOT Diameter 1.9 cm LA Systolic Diameter LX 3.6 cm 3.0 - 4.0 / 2.7 - 3.8 cm LV Ejection Fraction MOD 4C 67.2 % LV Ejection Fraction 4C AL 67.2 % M-MODE Aortic Root Diameter MM 2.7 cm AV Cusp Separation MM 1.6 cm DOPPLER AV Peak Velocity 141.0 cm/s AV Peak Gradient 8.0 mmHg AI Peak Velocity 252.0 cm/s AI Peak Gradient 25.4 mmHg AI Pressure Half Time 608.0 ms LVOT Peak Velocity 96.7 cm/s LVOT Peak Gradient 3.7 mmHg AV Area Cont Eq pk 1.9 cm MV Area PHT 2.8 cm Mitral E Point Velocity 65.6 cm/s Mitral A Point Velocity 72.6 cm/s Mitral E to A Ratio 0.9 LV E' Lateral Velocity 8.1 cm/s Mitral E to LV E' Lateral Ratio 8.1 LV E' Septal Velocity 6.5 cm/s Mitral E to LV E' Septal Ratio 10.0 TR Peak Velocity 221.0 cm/s TR Peak Gradient 19.5 mmHg Right Atrial Pressure 10.0 mmHg Pulmonary Artery Systolic Pressu 29.5 mmHg Right Ventricular Systolic Press 29.5 mmHg PV Peak Velocity 90.9 cm/s PV Peak Gradient 3.3 mmHg FINDINGS LEFT VENTRICLE The left ventricular systolic function is normal with an estimated ejection fraction in the range of 55-60%. Normal left ventricular size. Wall thickness is normal. No regional wall motion abnormalities are present. RIGHT VENTRICLE Normal right ventricular size and systolic function. LEFT ATRIUM The left atrial size is normal. RIGHT ATRIUM The right atrial size is normal. ATRIAL SEPTUM Normal atrial septal thickness without atrial level shunting by limited color doppler interrogation. AORTA The aortic root and proximal ascending aorta are normal in size on limited imaging. MITRAL VALVE Structurally normal mitral valve. No mitral valve stenosis or regurgitation. AORTIC VALVE Trileaflet aortic valve. Aortic valve sclerosis is present. Mild aortic valve regurgitation. No aortic valve stenosis. TRICUSPID VALVE Structurally normal tricuspid valve. There is trace tricuspid valve regurgitation. The estimated pulmonary arterial pressure is 29.5 mmHg. PULMONARY VALVE Trivial pulmonary valve regurgitation. VESSELS The inferior vena cava is normal in size. PERICARDIUM No pericardial effusion. Lex Garrison DO (Electronically Signed) Final Date:22 July 2017 14:11
== END 2017-07-22 12:48 | disposition home or self-care (01) | DRG 249 ==
LOC: PHED 15:12 → PHEDA 15:47 → HCIS 17:32
PROVIDERS: ADMIT Internal Medicine; ATTEND Internal Medicine
PROC: 02703DZ Dilation of Coronary Artery, One Artery with Intraluminal Device, Percutaneous Approach (ICD-10-PCS; principal; 2017-07-21)
PROC: 02703ZZ Dilation of Coronary Artery, One Artery, Percutaneous Approach (ICD-10-PCS; 2017-07-21)
PROC: 4A023N7 Measurement of Cardiac Sampling and Pressure, Left Heart, Percutaneous Approach (ICD-10-PCS; 2017-07-21)
PROC: B2111ZZ Fluoroscopy of Multiple Coronary Arteries using Low Osmolar Contrast (ICD-10-PCS; 2017-07-21)
DX: I21.02 ST elevation (STEMI) myocardial infarction involving left anterior descending coronary artery (principal); E11.9 Type 2 diabetes mellitus without complications; E03.9 Hypothyroidism, unspecified; I25.10 Atherosclerotic heart disease of native coronary artery without angina pectoris; E78.5 Hyperlipidemia, unspecified; Z88.1 Allergy status to other antibiotic agents
CPT/HCPCS: 71010; 80048; 80053; 80061; 82550; 83735; 84443; 84484; 85025; 85610; 85730; 92941; 93005; 93306; 93458; 99152; 99153; C1725; C1769; C1876; C1887; C1893; J0583; J1644; J2250; J2405; J3010; J7030; Q9967

== ENCOUNTER 2018-03-19 15:45 | Observation (INO) ==
--- NOTE | 2018-03-19 16:07 | ED ---
HPI General Chief complaint: Stroke Alert Stated complaint: Rt Arm Numbness Time Seen by Provider: 03/19/18 15:54 History of Present Illness HPI narrative: 77-year-old female history of hypothyroidism, hypertension here for evaluation of right arm numbness/tingling/weakness that started 20 minutes prior to arrival to the ER. Patient states that she suddenly felt numbness and weakness in her right arm, she denies any speech problems, no weakness in her legs, no weakness or sensory loss anywhere else. Patient had a heart attack back in July 2017 and since then she has been taking Plavix. Related Data Home Medications Medication Instructions Recorded Confirmed aspirin [Aspir-81] 81 mg PO DAILY 03/19/18 03/19/18 clopidogrel [Plavix] 75 mg PO DAILY 03/19/18 03/19/18 escitalopram oxalate 10 mg PO DAILY 03/19/18 03/19/18 levothyroxine [Synthroid] 50 mcg PO DAILY 03/19/18 03/19/18 metoprolol tartrate 25 mg PO BID 03/19/18 03/19/18 simvastatin 40 mg PO QPM 03/19/18 03/19/18 Allergies Allergy/AdvReac Type Severity Reaction Status Date / Time doxycycline Allergy Mild Nausea/Vomi Verified 03/19/18 15:57 ting Review of Systems ROS: all other systems reviewed are negative [facility] Social History Social History Substance History: No History of Abuse Smoking Status: Former smoker How Often Do You Have a Drink Containing Alcohol: Never Recent Out of Country Travel within the Last 8 Weeks: No Immunization History Tetanus Immunization: Unsure Hx Influenza Vaccine This Season: Yes Exam Narrative Exam Narrative: GENERAL: Alert oriented 3 no acute distress. SKIN: Focused skin assessment warm/dry. HEAD: Atraumatic. Normocephalic. EYES: Pupils equal and round. No scleral icterus. No injection or drainage. ENT: No nasal bleeding or discharge. Mucous membranes pink and moist. NECK: Trachea midline. No JVD. CARDIOVASCULAR: Regular rate and rhythm. No murmur appreciated. RESPIRATORY: No accessory muscle use. Clear to auscultation. Breath sounds equal bilaterally. GASTROINTESTINAL: Abdomen soft, non-tender, nondistended. Hepatic and splenic margins not palpable. MUSCULOSKELETAL: 4/5 on the right arm, No other deformities. No clubbing. No cyanosis. No edema. NEUROLOGICAL: Awake and alert. No obvious cranial nerve deficits. Motor grossly within normal limits. Normal speech. PSYCHIATRIC: Appropriate mood and affect; insight and judgment normal. Course Initial Documented Vital Signs Temperature 97.8 F 03/19/18 15:53 Pulse Rate 73 03/19/18 15:53 Respiratory Rate 18 03/19/18 15:53 Blood Pressure 190/83 H 03/19/18 15:53 Pulse Oximetry 96 03/19/18 15:53 Last Documented Vital Signs Temperature 96.7 F L 03/20/18 12:00 Pulse Rate 53 L 03/20/18 12:00 Respiratory Rate 16 03/20/18 12:00 Blood Pressure 129/67 03/20/18 12:00 Pulse Oximetry 95 03/20/18 12:00 NIH Stroke Scale NIHSS Time Completed NIHSS Time Completed: 16:14 NIH Stroke Scale Level of Consciousness: 0-Alert Orientation Questions: 0-Answers both correct Responds to Commands: 0-Both tasks correct Gaze Eye Movement: 0-Horizontal movement WNL Visual Hodge: 0-No visual field defect Facial Movement: 0-Normal Motor Functions Arm LEFT: 0-No drift Motor Functions Arm RIGHT: 1-Drift before 10 seconds Motor Functions Leg LEFT: 0-No drift Motor Functions Leg RIGHT: 0-No drift Limb Ataxia: 0-No ataxia Sensory Loss: 0-No sensory loss Best Language: 0-Normal Articulation: 0-Normal Extinction or Inattention Sensory: 0-Absent Total: 1 Quality Measure Queries Stroke Last date observed well: 03/19/18 Last time observed well: 15:00 Medical Decision Making MDM Narrative Medical decision making narrative: 77-year-old female here for evaluation of of right arm tingling numbness and weakness. Physical exam remarkable for 4/5 on the right arm, no other deficits. NIHSS score is 1 for minor drifting and weakness of the right arm. CAT scan was negative, CTA was negative, decision to administer TPA at that point was done but after reevaluation of the patient by me and Dr. Arroyo the neurologist on-call it seems that patient has low NIH score, no dysphagia and his symptoms are rapidly improving so at this point TPA was more risk than benefit and was not administered. I reevaluated the patient again and the weakness in the right arm is dramatically improved on its own. Patient will be admitted for TIA for further evaluation. Lab Data Result diagrams: 03/19/18 16:00 03/19/18 16:00 Lab Results 03/19/18 03/19/18 03/19/18 Range/Units 16:00 16:00 16:00 CBC w Diff Auto diff final WBC 7.9 (4.0-11.0) th/mm3 RBC 4.60 (4.00-5.30) mil/mm3 Hgb 14.6 (11.6-15.3) gm/dL Hct 43.4 (35.0-46.0) % MCV 94.3 (80.0-100.0) fL MCH 31.8 (27.0-34.0) pg MCHC 33.7 (32.0-36.0) % RDW 13.1 (11.6-17.2) % Plt Count 272 (150-450) th/mm3 MPV 8.0 (7.0-11.0) fL Neut % (Auto) 63.5 (16.0-70.0) % Lymph % (Auto) 27.6 (9.0-44.0) % [place] % (Auto) 6.1 (0.0-8.0) % Eos % (Auto) 2.0 (0.0-4.0) % Baso % (Auto) 0.8 (0.0-2.0) % Neut # (Auto) 4.9 (1.8-7.7) th/mm3 Lymph # (Auto) 2.2 (1.0-4.8) th/mm3 [place] # (Auto) 0.5 (0.0-0.9) th/mm3 Eos # (Auto) 0.2 (0.0-0.4) th/mm3 Baso # (Auto) 0.1 (0.0-0.2) th/mm3 WBC Differential . Differential Comment . PT 10.3 (9.8-11.6) sec INR 1.0 Ratio APTT 25.0 (24.3-30.1) sec Fibrinogen 361 (227-377) mg/dL Sodium 143 (136-145) meq/L Potassium 4.2 (3.5-5.1) meq/L Chloride 105 (98-107) meq/L Carbon Dioxide 31.5 (21.0-32.0) meq/L Anion Gap 7 (5-15) meq/L BUN 17 (7-18) mg/dL Creatinine 0.78 (0.50-1.00) mg/dL Estimated GFR 72 L (>89) mL/min Random Glucose 83 (74-106) mg/dL Hemoglobin A1c (4.3-6.0) % Calcium 8.7 (8.5-10.1) mg/dL Total Bilirubin 0.5 (0.2-1.0) mg/dL AST 13 L (15-37) U/L ALT 18 (10-53) U/L Alkaline Phosphatase 74 (45-117) U/L Total Creatine Kinase 53 (26-192) U/L Troponin I Less than 0.02 L (0.02-0.05) ng/mL Total Protein 6.8 (6.4-8.2) g/dL Albumin 3.6 (3.4-5.0) g/dL Triglycerides (42-150) mg/dL Cholesterol (120-200) mg/dL LDL Cholesterol, Calc (0-99) mg/dL HDL Cholesterol (40.0-60.0) mg/dL Cholesterol/HDL Ratio Ratio TSH (0.358-3.740) uIU/mL Urine Color (Yellw/Straw) Urine Clarity (Clear) Urine pH (5.0-8.5) Ur Specific [place] (1.002-1.035) Urine Protein (Neg-Trace) mg/dL Urine Glucose (UA) (Negative) mg/dL Urine Ketones (Negative) mg/dL Urine Occult Blood (Negative) Urine Nitrate (Negative) Urine Bilirubin (Negative) Urine Urobilinogen (Less than 2) mg/dL Ur Leukocyte Esterase (Negative) Urine RBC (0-3) /hpf Urine WBC (0-5) /hpf Ur Squamous Epith Cells (0-5) /hpf Micro UA Comment Urine Culture Comments 03/19/18 03/19/18 03/19/18 Range/Units 16:00 16:09 17:20 CBC w Diff WBC (4.0-11.0) th/mm3 RBC (4.00-5.30) mil/mm3 Hgb (11.6-15.3) gm/dL Hct (35.0-46.0) % MCV (80.0-100.0) fL MCH (27.0-34.0) pg MCHC (32.0-36.0) % RDW (11.6-17.2) % Plt Count (150-450) th/mm3 MPV (7.0-11.0) fL Neut % (Auto) (16.0-70.0) % Lymph % (Auto) (9.0-44.0) % [place] % (Auto) (0.0-8.0) % Eos % (Auto) (0.0-4.0) % Baso % (Auto) (0.0-2.0) % Neut # (Auto) (1.8-7.7) th/mm3 Lymph # (Auto) (1.0-4.8) th/mm3 [place] # (Auto) (0.0-0.9) th/mm3 Eos # (Auto) (0.0-0.4) th/mm3 Baso # (Auto) (0.0-0.2) th/mm3 WBC Differential Differential Comment PT (9.8-11.6) sec INR Ratio APTT (24.3-30.1) sec Fibrinogen (227-377) mg/dL Sodium (136-145) meq/L Potassium (3.5-5.1) meq/L Chloride (98-107) meq/L Carbon Dioxide (21.0-32.0) meq/L Anion Gap (5-15) meq/L BUN (7-18) mg/dL Creatinine (0.50-1.00) mg/dL Estimated GFR (>89) mL/min Random Glucose (74-106) mg/dL Hemoglobin A1c (4.3-6.0) % Calcium (8.5-10.1) mg/dL Total Bilirubin (0.2-1.0) mg/dL AST (15-37) U/L ALT (10-53) U/L Alkaline Phosphatase (45-117) U/L Total Creatine Kinase (26-192) U/L Troponin I (0.02-0.05) ng/mL Total Protein (6.4-8.2) g/dL Albumin (3.4-5.0) g/dL Triglycerides 148 (42-150) mg/dL Cholesterol 191 (120-200) mg/dL LDL Cholesterol, Calc 104 H (0-99) mg/dL HDL Cholesterol 57.2 (40.0-60.0) mg/dL Cholesterol/HDL Ratio 3.33 Ratio TSH 1.660 (0.358-3.740) uIU/mL Urine Color Yellow (Yellw/Straw) Urine Clarity Clear (Clear) Urine pH 5.5 (5.0-8.5) Ur Specific [place] Less/equal 1.005 (1.002-1.035) Urine Protein Negative (Neg-Trace) mg/dL Urine Glucose (UA) Negative (Negative) mg/dL Urine Ketones Negative (Negative) mg/dL Urine Occult Blood Negative (Negative) Urine Nitrate Negative (Negative) Urine Bilirubin Negative (Negative) Urine Urobilinogen 0.2 (Less than 2) mg/dL Ur Leukocyte Esterase Negative (Negative) Urine RBC 0-3 (0-3) /hpf Urine WBC 0-5 (0-5) /hpf Ur Squamous Epith Cells 0-5 (0-5) /hpf Micro UA Comment Culture not ind Urine Culture Comments Culture not ind 03/20/18 03/20/18 Range/Units 04:45 04:45 CBC w Diff WBC (4.0-11.0) th/mm3 RBC (4.00-5.30) mil/mm3 Hgb (11.6-15.3) gm/dL Hct (35.0-46.0) % MCV (80.0-100.0) fL MCH (27.0-34.0) pg MCHC (32.0-36.0) % RDW (11.6-17.2) % Plt Count (150-450) th/mm3 MPV (7.0-11.0) fL Neut % (Auto) (16.0-70.0) % Lymph % (Auto) (9.0-44.0) % [place] % (Auto) (0.0-8.0) % Eos % (Auto) (0.0-4.0) % Baso % (Auto) (0.0-2.0) % Neut # (Auto) (1.8-7.7) th/mm3 Lymph # (Auto) (1.0-4.8) th/mm3 [place] # (Auto) (0.0-0.9) th/mm3 Eos # (Auto) (0.0-0.4) th/mm3 Baso # (Auto) (0.0-0.2) th/mm3 WBC Differential Differential Comment PT (9.8-11.6) sec INR Ratio APTT (24.3-30.1) sec Fibrinogen (227-377) mg/dL Sodium (136-145) meq/L Potassium (3.5-5.1) meq/L Chloride (98-107) meq/L Carbon Dioxide (21.0-32.0) meq/L Anion Gap (5-15) meq/L BUN (7-18) mg/dL Creatinine (0.50-1.00) mg/dL Estimated GFR (>89) mL/min Random Glucose (74-106) mg/dL Hemoglobin A1c 5.5 (4.3-6.0) % Calcium (8.5-10.1) mg/dL Total Bilirubin (0.2-1.0) mg/dL AST (15-37) U/L ALT (10-53) U/L Alkaline Phosphatase (45-117) U/L Total Creatine Kinase (26-192) U/L Troponin I (0.02-0.05) ng/mL Total Protein (6.4-8.2) g/dL Albumin (3.4-5.0) g/dL Triglycerides 87 (42-150) mg/dL Cholesterol 178 (120-200) mg/dL LDL Cholesterol, Calc 104 H (0-99) mg/dL HDL Cholesterol 56.4 (40.0-60.0) mg/dL Cholesterol/HDL Ratio 3.15 Ratio TSH (0.358-3.740) uIU/mL Urine Color (Yellw/Straw) Urine Clarity (Clear) Urine pH (5.0-8.5) Ur Specific [place] (1.002-1.035) Urine Protein (Neg-Trace) mg/dL Urine Glucose (UA) (Negative) mg/dL Urine Ketones (Negative) mg/dL Urine Occult Blood (Negative) Urine Nitrate (Negative) Urine Bilirubin (Negative) Urine Urobilinogen (Less than 2) mg/dL Ur Leukocyte Esterase (Negative) Urine RBC (0-3) /hpf Urine WBC (0-5) /hpf Ur Squamous Epith Cells (0-5) /hpf Micro UA Comment Urine Culture Comments Imaging Data Radiologist's impression: Head MRI 03/19/18 00:00 CONCLUSION: 1. No acute infarct or other acute intracranial abnormality. 2. Chronic white matter changes. 3. Bilateral maxillary sinus disease. Chest X-Ray 03/19/18 16:03 CONCLUSION: Linear scarring or atelectasis left base. No dense consolidation or effusion Head CT 03/19/18 16:03 CONCLUSION: 1. No acute intracranial abnormalities. Report was called by [ Dr. Blanton to Dr. Henao at 4:20 PM] Head CTA 03/19/18 16:03 CONCLUSION: 1. Negative CTA Head. Neck CTA 03/19/18 16:03 CONCLUSION: 1. Mild atherosclerotic plaque without luminal narrowing or ulceration. The carotid arteries and vertebral arteries are patent. Discharge Plan Discharge Disposition Patient Disposition: 30 Still Patient Discharge Condition Condition: Stable Discharge Order Discharge Orders: Discharge Order (Routine); Ordered 03/20/18 Ordered By: Carmen Sanchez Discharge Details Anticipated Discharge Date: 03/20/18 Diagnosis: TIA (transient ischemic attack) Physicians Team ED Provider: César Rowan Primary Care Provider: UNKNOWN, Attending Provider: Elzbieta Alarcon Status ED Status: Left Department Discharge Information Discharge Date/Time: 03/19/18 17:50
[2018-03-19 16:14] LABS: Baso # (Auto) 0.1 th/mm3 (0.0-0.2); Baso % (Auto) 0.8 % (0.0-2.0); Eos # (Auto) 0.2 th/mm3 (0.0-0.4); Hematocrit 43.4 % (35.0-46.0); Hemoglobin 14.6 gm/dL (11.6-15.3); Lymph # (Auto) 2.2 th/mm3 (1.0-4.8); Lymph % (Auto) 27.6 % (9.0-44.0); Mean Corpuscular HGB Conc 33.7 % (32.0-36.0); Mean Corpuscular Hemoglobin 31.8 pg (27.0-34.0); Mean Corpuscular Volume 94.3 fL (80.0-100.0); Mono # (Auto) 0.5 th/mm3 (0.0-0.9); Mono % (Auto) 6.1 % (0.0-8.0); Neut # (Auto) 4.9 th/mm3 (1.8-7.7); Neut % (Auto) 63.5 % (16.0-70.0); Platelet Count 272 th/mm3 (150-450); Red Cell Distribution Width 13.1 % (11.6-17.2); White Blood Count 7.9 th/mm3 (4.0-11.0)
[2018-03-19 16:23] LABS: Chloride 105 meq/L (98-107); Potassium 4.2 meq/L (3.5-5.1); Sodium 143 meq/L (136-145)
--- NOTE | 2018-03-19 16:25 | CT ---
EXAM DATE: 03/19/2018 4:11 PM EDT AGE/SEX: 77 years / Female INDICATIONS: Stroke alert. Right upper extremity numbness. CLINICAL DATA: This is the patient's initial encounter. Patient reports that signs and symptoms have been present for 1 day and indicates a pain score of 0/10. MEDICAL/SURGICAL HISTORY: None. None. RADIATION DOSE: 61.27 CTDI (mGy) COMPARISON: No prior exams available for comparison. TECHNIQUE: CT of the head without contrast. Using automated exposure control and adjustment of the mA and/or kV according to patient size, radiation dose was kept as low as reasonably achievable to ob tain optimal diagnostic quality images. DICOM format image data is available electronically for revi ew and comparison. FINDINGS: Cerebrum: No intracranial mass, hemorrhage or shift. No hydrocephalus. Posterior Fossa: The cerebellum and brainstem are intact. The 4th ventricle is midline. The cerebe llopontine angle is unremarkable. Extracranial: The visualized portion of the orbits is intact. Skull: The calvaria is intact. No evidence of skull fracture. CONCLUSION: 1. No acute intracranial abnormalities. Report was called by [ Dr. Blanton to Dr. Henao at 4:20 PM] Electronically signed by: John Blanton MD 03/19/2018 4:23 PM EDT
[2018-03-19 16:26] LABS: Calcium 8.7 mg/dL (8.5-10.1)
[2018-03-19 16:27] LABS: Albumin 3.6 g/dL (3.4-5.0); Anion Gap 7 meq/L (5-15); Carbon Dioxide 31.5 meq/L (21.0-32.0); Glucose,Random 83 mg/dL (74-106)
[2018-03-19 16:28] LABS: Blood Urea Nitrogen 17 mg/dL (7-18)
[2018-03-19 16:30] LABS: Alanine Aminotransferase 18 U/L (10-53); Aspartate Aminotransferase 13 U/L (15-37); Glomerular Filtration Rate 72 mL/min (>89)
[2018-03-19] MEDS ORDERED: Alteplase Bolus 9 MG/9 ML Syringe IV.PUSH ONE (16:30)
[2018-03-19] MEDS ORDERED: ALTEPLASE DRIP IV.SIG ONE (16:30)
[2018-03-19 16:32] LABS: Total Protein 6.8 g/dL (6.4-8.2)
[2018-03-19 16:33] LABS: Alkaline Phosphatase 74 U/L (45-117)
[2018-03-19 16:38] LABS: Creatine Kinase 53 U/L (26-192)
[2018-03-19 16:47] LABS: Prothrombin Time 10.3 sec (9.8-11.6)
--- NOTE | 2018-03-19 16:57 | CT ---
EXAM DATE: 03/19/2018 4:32 PM EDT AGE/SEX: 77 years / Female INDICATIONS: Stroke alert. Right upper extremity numbness. CLINICAL DATA: This is the patient's initial encounter. Patient reports that signs and symptoms have been present for 1 day and indicates a pain score of 0/10. MEDICAL/SURGICAL HISTORY: None. None. RADIATION DOSE: 42.23 CTDI (mGy) COMPARISON: [facility], CT HEAD W/O CONTRAST, 03/19/2018. . TECHNIQUE: Volumetric scanning was performed using a multi-row detector CT scanner during bolus infu maria teresa of 85 ml Visipaque 320 (iodixanol) nonionic water-soluble contrast as a cumulative dose for mul tiple exams. The data was post processed with a variety of visualization algorithms including full volume maximum intensity projection, multi-planar sliding thin slab reformation, curved planar reform ation, and surface rendering techniques. Using automated exposure control and adjustment of the mA a nd/or kV according to patient size, radiation dose was kept as low as reasonably achievable to obtain optimal diagnostic quality images. DICOM format image data is available electronically for review a nd comparison. FINDINGS: There is excellent visualization of the major intracranial arteries out to the second-order branch ve ssels. There is no evidence for aneurysm, vessel truncation or stenosis, and no evidence for vascula r malformation. CONCLUSION: 1. Negative CTA Head. Electronically signed by: Samuel Justice MD 03/19/2018 4:56 PM EDT
--- NOTE | 2018-03-19 17:06 | CT ---
EXAM DATE: 03/19/2018 4:58 PM EDT AGE/SEX: 77 years / Female INDICATIONS: Stroke alert. Right upper extremity numbness. CLINICAL DATA: This is the patient's initial encounter. Patient reports that signs and symptoms have been present for 1 day and indicates a pain score of 0/10. MEDICAL/SURGICAL HISTORY: None. None. RADIATION DOSE: 42.23 CTDI (mGy) ; Combined studies COMPARISON: No prior exams available for comparison. TECHNIQUE: Volumetric scanning was performed using a multirow detector CT scanner during bolus infus ion of 85 ml Visipaque 320 (iodixanol) nonionic water-soluble contrast as a cumulative dose for mult iple exams. The data was postprocessed with a variety of visualization algorithms including full-vo lume maximum intensity projection, multiplanar sliding thin-slab reformation, curved-planar reformati on, and surface-rendering techniques. Using automated exposure control and adjustment of the mA and/ or kV according to patient size, radiation dose was kept as low as reasonably achievable to obtain op timal diagnostic quality images. DICOM format image data is available electronically for review and comparison. FINDINGS: Aortic Arch: There is a three-vessel origin of the great vessels from the aorta. No evidence of ost ial narrowing Right Carotid: Mild calcified atheromatous plaque involving the carotid bulb without ulceration or l uminal narrowing. The common carotid, extracranial internal carotid, and external carotid are patent. Left Carotid: Mild calcified atheromatous plaque involving the carotid bulb without ulceration or nancy david narrowing. The common carotid, extracranial internal carotid, and external carotid are patent.. Vertebrals: The vertebral arteries have a symmetric diameter. No stenotic lesions are seen. Percent stenosis is calculated using the diameter of the stenotic region over the diameter of the nor mal distal internal carotid artery. CONCLUSION: 1. Mild atherosclerotic plaque without luminal narrowing or ulceration. The carotid arteries and shorty tebral arteries are patent. Electronically signed by: Samuel Justice MD 03/19/2018 5:05 PM EDT
[2018-03-19] MEDS ORDERED: Aspirin 325 MG Tablet PO STA (17:11)
--- NOTE | 2018-03-19 17:36 | XR ---
EXAM DATE: 03/19/2018 5:29 PM EDT AGE/SEX: 77 years / Female INDICATIONS: Short of breath, stroke alert. CLINICAL DATA: This is the patient's initial encounter. Patient reports that signs and symptoms have been present for 1 day and indicates a pain score of 2/10. MEDICAL/SURGICAL HISTORY: None. None. COMPARISON: [facility], CHEST SINGLE AP, 07/21/2017. . FINDINGS: No focal consolidation or effusion. Heart size upper limits normal. No pneumothorax. Surgical clips i n the upper abdomen. Linear atelectasis or scarring left lung base. CONCLUSION: Linear scarring or atelectasis left base. No dense consolidation or effusion Electronically signed by: John Blanton MD 03/19/2018 5:34 PM EDT
[2018-03-19 17:37] LABS: Bilirubin,Urine Negative (Negative); Clarity,Urine Clear (Clear); Color,Urine Yellow (Yellw/Straw); Glucose,Urine (UA) Negative (Negative); Leukocyte Esterase,Urine Negative (Negative); Nitrite,Urine Negative (Negative); PH,Urine 5.5 (5.0-8.5); Specific Gravity,Urine Less/Equal 1.005 (1.002-1.035); Urobilinogen,Urine 0.2 mg/dL (Less than 2)
[2018-03-19 17:42] LABS: RBC,Urine 0-3 /hpf (0-3); Squamous Epithelial Cell,Urine 0-5 /hpf (0-5); WBC,Urine 0-5 /hpf (0-5)
--- NOTE | 2018-03-19 17:53 | P.HPIM ---
History of Present Illness Service: 77-year-old female with a medical history significant for coronary artery disease, STEMI on July 2017 status post stent placement, hypothyroidism presented to the emergency room as a stroke alert. Patient reports she was at the store going through clothing when her right hand starting feeling numb and weak to the point she had to use her left arm to hold the right arm. Stroke alert called in the emergency room. She was evaluated by neurology. Her symptoms significantly improved therefore TPA not administered. On my evaluation, the patient reports her arm feels almost back to normal. She denied any associated chest pain, shortness of breath, lightheadedness. No headaches. No other focal weakness. Primary Care Physician: UNKNOWN - Diagnosis (1) TIA (transient ischemic attack) (2) History of AL (myocardial infarction) (3) Hypothyroidism Review of Systems All other systems reviewed negative except as stated in HPI [facility] - History History Provided By: Patient - Medical History Medical History: Medical History (Last Updated 03/19/18 @ 17:41 by Elzbieta Alarcon MD) CAD (coronary artery disease) History of AL (myocardial infarction) History of hysterectomy Hypothyroid - Surgical History Surgical History: Surgical History (Last Reviewed 03/19/18 @ 17:40 by Elzbieta Alarcon MD) History of cardiac catheterization History of section - Tobacco History Smoking Status: Former smoker - Alcohol History How Often Do You Have a Drink Containing Alcohol: Never - Substance Use History Substance History: No History of Abuse - Travel History Recent Travel Out of the Country Within the Last 8 Weeks: No - Immunization History Tetanus Immunization: Unsure Hx Influenza Vaccine This Season: Yes Medications and Allergies Active Medications: Active Medications Aspirin (Ecotrin) 81 mg PO DAILY BERYL Clopidogrel Bisulfate (Plavix) 75 mg PO DAILY BERYL Heparin Sodium (Porcine) (Heparin Inj) 5,000 units SQ Q12H BERYL Levothyroxine Sodium (Synthroid) 50 mcg PO DAILY@0600 BERYL Metoprolol Tartrate (Lopressor) 25 mg PO DAILY BERYL Pravastatin Sodium (Pravachol) 80 mg PO QPM BERYL Allergies Allergy/AdvReac Type Severity Reaction Status Date / Time doxycycline Allergy Mild Nausea/Vomi Verified 03/19/18 15:57 ting Home Medications Medication Instructions Recorded Confirmed Type aspirin [Aspir-81] 03/19/18 History clopidogrel [Plavix] 03/19/18 History levothyroxine [Synthroid] 50 mcg PO DAILY 03/19/18 03/19/18 History metoprolol tartrate 03/19/18 History simvastatin 40 mg PO QPM 03/19/18 03/19/18 History Exam Vital signs: Vital Signs 03/19/18 15:53 03/19/18 16:03 03/19/18 16:29 Temperature 97.8 F Pulse Rate 73 73 63 Respiratory Rate 18 18 18 Blood Pressure 190/83 H 169/80 H 149/61 H Pulse Oximetry 96 97 97 Intake & Output 03/18/18 03/19/18 03/19/18 18:59 06:59 18:59 Output Total 900 / 900 Balance -900 / -900 Weight 63.618 kg Output: Urine 900 / 900 Narrative: CONSTITUTIONAL/GENERAL: This is an adequately nourished patient, in no apparent distress. Vital signs reviewed SKIN: No jaundice, rashes, or concerning lesions. Not diaphoretic. HEAD: Atraumatic. Normocephalic. EYES: Pupils equal and round and reactive. Extra ocular motions are intact. No scleral icterus. No injection or drainage. ENT: Hearing grossly normal. Nose without drainage. Throat without visible erythema, exudates, masses, or lesions. NECK: Trachea midline. Neck is supple, non-tender. No palpable thyroid enlargement or nodularity. CARDIOVASCULAR: Normal rate and regular rhythm without murmurs, gallops, or rubs. No JVD. Peripheral pulses 2+ and symmetric. RESPIRATORY/CHEST: Symmetric, unlabored respirations. Breath sounds equal and clear to auscultation bilaterally. No wheezes, crackles, rales, or rhonchi. GASTROINTESTINAL: Abdomen soft, non-tender, non-distended. No hepato- splenomegaly, or palpable masses. No guarding. Bowel sounds present. MUSCULOSKELETAL: Extremities without clubbing, cyanosis, or edema. No joint tenderness or effusion noted. No calf tenderness. No mottling or clubbing. NEUROLOGICAL: Awake and alert. Right upper extremity strength is 4 out of 5 compared to left is 5 out of 5. Rest of the major muscle groups 5 out of 5. No other focal weakness. PSYCHIATRIC: No obvious mood problems. No apparent hallucinations or other psychotic thought process. Results - Labs CBC & Chem 7: 03/19/18 16:00 03/19/18 16:00 Labs: Short CBC 03/19/18 Range/Units 16:00 WBC 7.9 (4.0-11.0) th/mm3 Hgb 14.6 (11.6-15.3) gm/dL Hct 43.4 (35.0-46.0) % Plt Count 272 (150-450) th/mm3 BMP 03/19/18 16:00 Sodium 143 Potassium 4.2 Chloride 105 Carbon Dioxide 31.5 BUN 17 Creatinine 0.78 Calcium 8.7 Cardiac Enzymes 03/19/18 Range/Units 16:00 Total Creatine Kinase 53 (26-192) U/L Troponin I Less than 0.02 L (0.02-0.05) ng/mL Liver Function 03/19/18 Range/Units 16:00 Total Bilirubin 0.5 (0.2-1.0) mg/dL AST 13 L (15-37) U/L ALT 18 (10-53) U/L Alkaline Phosphatase 74 (45-117) U/L Albumin 3.6 (3.4-5.0) g/dL - Imaging Impressions Head CT 03/19/18 16:03 CONCLUSION: 1. No acute intracranial abnormalities. Report was called by [ Dr. Blanton to Dr. Henao at 4:20 PM] Head CTA 03/19/18 16:03 CONCLUSION: 1. Negative CTA Head. Neck CTA 03/19/18 16:03 CONCLUSION: 1. Mild atherosclerotic plaque without luminal narrowing or ulceration. The carotid arteries and vertebral arteries are patent. Caprini VTE Risk Assessment Caprini VTE Risk Assessment: Moderate/High Risk (score >= 2) Caprini Risk Assessment Model: Point Value = 1 Point Value = 2 Point Value = 3 Point Value = 5 Age 41-60 Minor surgery BMI > 25 kg/m2 Swollen legs Varicose veins or History of unexplained or recurrent spontaneous Oral contraceptives or hormone replacement Sepsis (< 1 month) Serious lung disease, including pneumonia (< 1 month) Abnormal pulmonary function Acute myocardial infarction Congestive heart failure (< 1 month) History of inflammatory bowel disease Medical patient at bed rest Age 61-74 Arthroscopic surgery Major open surgery (> 45 min) Laparoscopic surgery (> 45 min) Malignancy Confined to bed (> 72 hours) Immobilizing plaster cast Central venous access Age >= 75 History of VTE Family history of VTE Factor V Leiden Prothrombin [id number] Lupus anticoagulant Anticardiolipin antibodies Elevated serum homocysteine Heparin-induced thrombocytopenia Other congenital or acquired thrombophilia Stroke (< 1 month) Elective arthroplasty Hip, pelvis, or leg fracture Acute spinal cord injury (< 1 month) Prophylaxis Regimen: Total Risk Factor Score Risk Level Prophylaxis Regimen 0-1 Low Early ambulation 2 Moderate Order ONE of the following: *Sequential Compression Device (SCD) *Heparin 5000 units SQ BID 3-4 Higher Order ONE of the following medications: *Heparin 5000 units SQ TID *Enoxaparin/Lovenox 40 mg SQ daily (WT < 150 kg, CrCl > 30 mL/min) *Enoxaparin/Lovenox 30 mg SQ daily (WT < 150 kg, CrCl > 10-29 mL/min) *Enoxaparin/Lovenox 30 mg SQ BID (WT < 150 kg, CrCl > 30 mL/min) AND/OR *Sequential Compression Device (SCD) 5 or more Highest Order ONE of the following medications: *Heparin 5000 units SQ TID (Preferred with Epidurals) *Enoxaparin/Lovenox 40 mg SQ daily (WT < 150 kg, CrCl > 30 mL/min) *Enoxaparin/Lovenox 30 mg SQ daily (WT < 150 kg, CrCl > 10-29 mL/min) *Enoxaparin/Lovenox 30 mg SQ BID (WT < 150 kg, CrCl > 30 mL/min) AND *Sequential Compression Device (SCD) Assessment and Plan - Assessment (1) TIA (transient ischemic attack) Code(s): G45.9 - Transient cerebral ischemic attack, unspecified Status: Acute (2) History of AL (myocardial infarction) Code(s): I25.2 - Old myocardial infarction Status: Acute (3) Hypothyroidism Code(s): E03.9 - Hypothyroidism, unspecified Status: Acute - Plan 77-year-old female who presented as a stroke alert with right upper extremity weakness and numbness. Symptoms quickly resolving. Probable TIA: -Neurology evaluated the patient in the emergency room. Head CT negative. Neck CTA does not reveal hemodynamically significant stenosis -Patient already on aspirin and Plavix at home. Continue the same. -Continue neuro checks and follow-up MRI. History of AL/CAD: With history of stent placement. No cardiovascular complaint. -Continue aspirin, Plavix, statin, and Lopressor. Hypothyroidism: -Continue Synthroid. Check TSH GI prophylaxis: Stool softener PRN constipation. DVT PPx: Heparin
[2018-03-19] MEDS: Heparin - SQ 10,000 UNITS/ML Vial SQ SCH (20:40)
--- NOTE | 2018-03-19 20:53 | MB ---
cc: Flash Arroyo MD, PhD DATE: 03/19/2018 REASON FOR CONSULTATION: Stroke-alert. HISTORY OF PRESENT ILLNESS: This is a pleasant 77-year-old woman who about 20 minutes prior to arrival had the acute onset of weakness and numbness of the right arm. She had no speech changes. No other symptomatology. No right lower extremity difficulties. She presented to the ER. A stroke-alert was called. During the course of her evaluation in the ER, she had dramatic improvement in her right upper extremity strength, returning to approximately normal, with some mild clumsiness of the right hand. CT of the brain was unremarkable. CTA of the neck and the brain unremarkable for any large vessel occlusion. Because of the rapid resolution of symptoms, I felt the patient was not a candidate for TPA. She was not a candidate for intervention since the CTA of the brain was negative. PAST MEDICAL HISTORY: She has history of coronary stent, was on Plavix. PHYSICAL EXAMINATION: VITAL SIGNS: Blood pressure 190/83, pulse is 73, respiratory rate is 18, temperature 97 degrees. NEUROLOGIC: Higher cortical function, alert and oriented. Speech is normal. Cranial nerves are intact. Motor exam reveals 5/5 strength of all major groups in both upper and lower extremities, with the exception of the right fur cutter strength, which is slightly weak at 4+/5. Fine motor skills slightly diminished in the right hand. There is really no pronator drift. She has normal strength in the leg. Reflexes are symmetric. Sensory exam is intact. IMAGING: CT brain is unremarkable for any acute change. The CT angiogram of the brain is unremarkable. No evidence of large vessel occlusion. CTA neck is unremarkable for any significant stenosis. LABORATORY DATA: The white count 7900, hemoglobin 14.6, hematocrit 43%, platelets 272,000. PT 10.3, INR 1, aPTT 25.0. Glucose 83, sodium 143, potassium 4.2, chloride 105, CO2 31.5, BUN 17, creatinine 0.78. AST 13, ALT is 18. IMPRESSION AND PLAN: Stroke versus transient ischemic attack, with rapidly resolving symptoms. National Institutes of Health stroke scale is 1. Because of the rapid resolution, I recommended against IV TPA. Recommend adding aspirin to Plavix therapy. Check an echocardiogram. Monitor cardiac telemetry to rule out AFib. We will also check a lipid panel. We will maintain the patient at bedrest, with head of bed flat overnight. We will watch the patient closely, with close neurological checks. Flash Arroyo MD, PhD IVELISSE/DARIEN , 08:12 PM , 08:19 PM
--- NOTE | 2018-03-19 21:46 | MR ---
EXAM DATE: 03/19/2018 9:29 PM EDT AGE/SEX: 77 years / Female INDICATIONS: CVA. Weakness in right hand and arm. CLINICAL DATA: This is the patient's initial encounter. Patient reports that signs and symptoms have been present for 1 day and indicates a pain score of 1/10. MEDICAL/SURGICAL HISTORY: Myocardial infarction. Hysterectomy. Gastric bypass. secti on. Wrist sx, Cataract sx, Rt knee sx. COMPARISON: [facility], CT HEAD W/O CONTRAST, 03/19/2018. . TECHNIQUE: Multiplanar, multisequence examination of the brain was performed without contrast. FINDINGS: Cerebrum: The ventricles are normal for age. No evidence of midline shift, mass lesion, hemorrhage or acute infarction. No extraaxial fluid collections are seen. The pituitary gland and suprasellar cistern are normal in configuration. White Matter: Moderate to severe, symmetric chronic FLAIR signal abnormality seen in the periventric ular and deep white matter of both cerebral hemispheres. Posterior Fossa: The cerebellum and brainstem are intact. The 4th ventricle is midline. The cerebel lopontine angle is unremarkable. The cerebellar tonsils are normal in position. Diffusion Imaging: No focal areas of restricted diffusion are seen. No evidence of acute infarction . Extracranial: The visualized portions of the orbits and paranasal sinuses are unremarkable. There is hyperostosis frontalis. Mucoperiosteal thickening and mucus retention cysts are seen of the visualized maxillary air cells. CONCLUSION: 1. No acute infarct or other acute intracranial abnormality. 2. Chronic white matter changes. 3. Bilateral maxillary sinus disease. Electronically signed by: Duc Jeong MD 03/19/2018 9:45 PM EDT
[2018-03-19 23:24] LABS: Chol/HDL Ratio 3.33 Ratio; HDL Cholesterol 57.2 mg/dL (40.0-60.0)
[2018-03-20 08:46] VITALS: RESP 16
[2018-03-20] MEDS ORDERED: Metoprolol Tartrate 25 MG Tablet PO SCH (09:00)
--- NOTE | 2018-03-20 09:03 | P.PNIM ---
Subjective Interval history: Patient reports she is feeling better today. Right arm weakness is resolved. She feels back to normal. Physical Exam Vital signs: Vital Signs 03/19/18 15:53 03/19/18 16:03 03/19/18 16:29 Temperature 97.8 F Pulse Rate 73 73 63 Respiratory Rate 18 18 18 Blood Pressure 190/83 H 169/80 H 149/61 H Pulse Oximetry 96 97 97 03/19/18 20:00 03/19/18 20:42 03/20/18 00:00 Temperature 98.3 F 97.3 F L Pulse Rate 62 70 Respiratory Rate 20 20 Blood Pressure 176/76 H 144/70 H Pulse Oximetry 93 L 96 94 L 03/20/18 04:00 03/20/18 08:00 Temperature 97.3 F L 96.5 F L Pulse Rate 66 82 Respiratory Rate 20 16 Blood Pressure 148/67 H 105/55 L Pulse Oximetry 93 L 94 L Intake & Output 03/19/18 03/20/18 03/20/18 18:59 06:59 18:59 Intake Total 240 / 240 Output Total 900 / 900 Balance -900 / -900 240 / 240 Weight 63.618 kg 63.5 kg Intake: Oral 240 / 240 Output: Urine 900 / 900 Other: # Voids 3 Narrative: GENERAL: This is a well-nourished, well-developed patient, in no apparent distress. CARDIOVASCULAR: Normal rate and regular rhythm without murmurs, gallops, or rubs. RESPIRATORY: Good respiratory efforts. Breath sounds equal and clear to auscultation bilaterally. GASTROINTESTINAL: Abdomen soft, non-tender, non-distended. Normal active bowel sounds MUSCULOSKELETAL: Extremities without cyanosis, or edema. NEURO: Alert & Oriented x4 to person, place, time, situation. Moves all ext x4. Right upper extremity 4+ out of 5. Rest of major muscle groups 5 out of 5. PSYCH: Appropriate mood and affect. Results - Labs CBC & Chem 7: 03/19/18 16:00 03/19/18 16:00 Laboratory Results - last 24 hr 03/19/18 03/19/18 03/19/18 16:00 16:00 16:00 CBC w Diff Auto diff final WBC 7.9 RBC 4.60 Hgb 14.6 Hct 43.4 MCV 94.3 MCH 31.8 MCHC 33.7 RDW 13.1 Plt Count 272 MPV 8.0 Neut % (Auto) 63.5 Lymph % (Auto) 27.6 [place] % (Auto) 6.1 Eos % (Auto) 2.0 Baso % (Auto) 0.8 Neut # (Auto) 4.9 Lymph # (Auto) 2.2 [place] # (Auto) 0.5 Eos # (Auto) 0.2 Baso # (Auto) 0.1 WBC Differential . Differential Comment . PT 10.3 INR 1.0 APTT 25.0 Fibrinogen 361 Sodium 143 Potassium 4.2 Chloride 105 Carbon Dioxide 31.5 Anion Gap 7 BUN 17 Creatinine 0.78 Estimated GFR 72 L Random Glucose 83 Calcium 8.7 Total Bilirubin 0.5 AST 13 L ALT 18 Alkaline Phosphatase 74 Total Creatine Kinase 53 Troponin I Less than 0.02 L Total Protein 6.8 Albumin 3.6 Triglycerides Cholesterol LDL Cholesterol, Calc HDL Cholesterol Cholesterol/HDL Ratio TSH Urine Color Urine Clarity Urine pH Ur Specific [place] Urine Protein Urine Glucose (UA) Urine Ketones Urine Occult Blood Urine Nitrate Urine Bilirubin Urine Urobilinogen Ur Leukocyte Esterase Urine RBC Urine WBC Ur Squamous Epith Cells Micro UA Comment Urine Culture Comments 03/19/18 03/19/18 03/19/18 16:00 16:09 17:20 CBC w Diff WBC RBC Hgb Hct MCV MCH MCHC RDW Plt Count MPV Neut % (Auto) Lymph % (Auto) [place] % (Auto) Eos % (Auto) Baso % (Auto) Neut # (Auto) Lymph # (Auto) [place] # (Auto) Eos # (Auto) Baso # (Auto) WBC Differential Differential Comment PT INR APTT Fibrinogen Sodium Potassium Chloride Carbon Dioxide Anion Gap BUN Creatinine Estimated GFR Random Glucose Calcium Total Bilirubin AST ALT Alkaline Phosphatase Total Creatine Kinase Troponin I Total Protein Albumin Triglycerides 148 Cholesterol 191 LDL Cholesterol, Calc 104 H HDL Cholesterol 57.2 Cholesterol/HDL Ratio 3.33 TSH 1.660 Urine Color Yellow Urine Clarity Clear Urine pH 5.5 Ur Specific [place] Less/equal 1.005 Urine Protein Negative Urine Glucose (UA) Negative Urine Ketones Negative Urine Occult Blood Negative Urine Nitrate Negative Urine Bilirubin Negative Urine Urobilinogen 0.2 Ur Leukocyte Esterase Negative Urine RBC 0-3 Urine WBC 0-5 Ur Squamous Epith Cells 0-5 Micro UA Comment Culture not ind Urine Culture Comments Culture not ind - Imaging Impressions Head MRI 03/19/18 00:00 CONCLUSION: 1. No acute infarct or other acute intracranial abnormality. 2. Chronic white matter changes. 3. Bilateral maxillary sinus disease. Chest X-Ray 03/19/18 16:03 CONCLUSION: Linear scarring or atelectasis left base. No dense consolidation or effusion Head CT 03/19/18 16:03 CONCLUSION: 1. No acute intracranial abnormalities. Report was called by [ Dr. Blanton to Dr. Henao at 4:20 PM] Head CTA 03/19/18 16:03 CONCLUSION: 1. Negative CTA Head. Neck CTA 03/19/18 16:03 CONCLUSION: 1. Mild atherosclerotic plaque without luminal narrowing or ulceration. The carotid arteries and vertebral arteries are patent. Assessment and Plan - Assessment (1) TIA (transient ischemic attack) Code(s): G45.9 - Transient cerebral ischemic attack, unspecified Status: Acute (2) History of OH (myocardial infarction) Code(s): I25.2 - Old myocardial infarction Status: Acute (3) Hypothyroidism Code(s): E03.9 - Hypothyroidism, unspecified Status: Acute - Plan 77-year-old female who presented as a stroke alert with right upper extremity weakness and numbness. Symptoms quickly resolving. Probable TIA: -Neurology evaluated the patient in the emergency room. Head CT negative. Neck CTA does not reveal hemodynamically significant stenosis. MRI unremarkable -Continue aspirin and Plavix. -2D echocardiogram pending. History of OH/CAD: With history of stent placement. No cardiovascular complaint. -Continue aspirin, Plavix, statin, and Lopressor. Hypothyroidism: -Continue Synthroid. GI prophylaxis: Stool softener PRN constipation. DVT PPx: Heparin Discharge Planning: Discharge patient to home Condition on discharge: Improved Regular Diet as tolerated Ad Cassie activity Rx written:Per med rec Follow-up with primary care physician (1) TIA (transient ischemic attack) Qualifiers: Transient cerebral ischemia type: other Qualified Code(s): G45.8 - Other transient cerebral ischemic attacks and related syndromes
[2018-03-20] MEDS: Heparin - SQ 10,000 UNITS/ML Vial SQ SCH (10:39)
[2018-03-20 10:52] LABS: Chol/HDL Ratio 3.15 Ratio; HDL Cholesterol 56.4 mg/dL (40.0-60.0)
[2018-03-20 14:14] VITALS: BP 129/67; PULSE 53; TEMP 96.7; O2SAT 95
--- NOTE | 2018-03-20 16:09 | ECHRPT ---
Indication: CVA/TIA CONCLUSIONS The left ventricular systolic function is normal with an estimated ejection fraction in the range of 55-60%. Normal left ventricular size. Wall thickness is normal. No regional wall motion abnormalities are present. Aortic valve sclerosis is present. Trace aortic valve regurgitation. There is trace tricuspid valve regurgitation. The estimated pulmonary arterial pressure is 28.3 mmHg. Trivial pulmonary valve regurgitation. BP: / HR: Rhythm: Sinus MEASUREMENTS (Male / Female) Normal Values Technical Quality:Good 2D ECHO LV Diastolic Diameter PLAX 4.1 cm 4.2 - 5.9 / 3.9 - 5.3 cm LV Systolic Diameter PLAX 2.9 cm IVS Diastolic Thickness 0.9 cm 0.6 - 1.0 / 0.6 - 0.9 cm LVPW Diastolic Thickness 0.9 cm 0.6 - 1.0 / 0.6 - 0.9 cm LV Relative Wall Thickness 0.4 RV Internal Dim ED PLAX 2.5 cm LVOT Diameter 1.8 cm LA Systolic Diameter LX 3.0 cm 3.0 - 4.0 / 2.7 - 3.8 cm LV Ejection Fraction MOD 4C 55.1 % LV Ejection Fraction 4C AL 56.3 % M-MODE Aortic Root Diameter MM 2.0 cm LA Systolic Diameter MM 3.1 cm LA Ao Ratio MM 1.6 AV Cusp Separation MM 1.6 cm DOPPLER AV Peak Velocity 128.0 cm/s AV Peak Gradient 6.6 mmHg AI Peak Velocity 287.5 cm/s AI Peak Gradient 33.1 mmHg AI Pressure Half Time 784.0 ms LVOT Peak Velocity 82.9 cm/s LVOT Peak Gradient 2.7 mmHg AV Area Cont Eq pk 1.6 cm MV Area PHT 3.1 cm Mitral E Point Velocity 57.8 cm/s Mitral A Point Velocity 72.1 cm/s Mitral E to A Ratio 0.8 LV E' Lateral Velocity 5.4 cm/s Mitral E to LV E' Lateral Ratio 10.8 LV E' Septal Velocity 5.6 cm/s Mitral E to LV E' Septal Ratio 10.4 TR Peak Velocity 214.0 cm/s TR Peak Gradient 18.3 mmHg Right Atrial Pressure 10.0 mmHg Pulmonary Artery Systolic Pressu 28.3 mmHg Right Ventricular Systolic Press 28.3 mmHg PV Peak Velocity 66.5 cm/s PV Peak Gradient 1.8 mmHg FINDINGS LEFT VENTRICLE The left ventricular systolic function is normal with an estimated ejection fraction in the range of 55-60%. Normal left ventricular size. Wall thickness is normal. No regional wall motion abnormalities are present. RIGHT VENTRICLE Normal right ventricular size and systolic function. LEFT ATRIUM The left atrial size is normal. RIGHT ATRIUM The right atrial size is normal. ATRIAL SEPTUM Normal atrial septal thickness without atrial level shunting by limited color doppler interrogation. AORTA The aortic root and proximal ascending aorta are normal in size on limited imaging. MITRAL VALVE Structurally normal mitral valve. No mitral valve stenosis or regurgitation. AORTIC VALVE Trileaflet aortic valve. Aortic valve sclerosis is present. Trace aortic valve regurgitation. TRICUSPID VALVE Structurally normal tricuspid valve. There is trace tricuspid valve regurgitation. The estimated pulmonary arterial pressure is 28.3 mmHg. PULMONARY VALVE Trivial pulmonary valve regurgitation. VESSELS The inferior vena cava is normal in size. PERICARDIUM No pericardial effusion. Abel Toscano MD, FACC, [facility] [place] (Electronically Signed) Final Date:20 March 2018 16:09
[2018-03-20 16:26] LABS: Hemoglobin A1c 5.5 % (4.3-6.0)
--- NOTE | 2018-03-20 22:35 | ECG ---
Date Performed: 03/19/2018 Time Performed: 16:51:05 PTAGE: 77 years EKG: Sinus rhythm NORMAL ECG PREVIOUS TRACING : 07/22/2017 06.32 Since the previous tracing, no significant change noted DOCTOR: Doron Edge Interpretating Date/Time 03/20/2018 22:31:07
== END 2018-03-20 17:08 | disposition home or self-care (01) ==
LOC: PHED 15:45 → PHEDA 15:45 → PH3 15:45
PROVIDERS: ADMIT Family Medicine; ATTEND Family Medicine
DX: R06.02 Shortness of breath; E03.9 Hypothyroidism, unspecified; Z90.710 Acquired absence of both cervix and uterus; I25.2 Old myocardial infarction; Z79.82 Long term (current) use of aspirin; I10 Essential (primary) hypertension; I25.10 Atherosclerotic heart disease of native coronary artery without angina pectoris; G45.9 Transient cerebral ischemic attack, unspecified; Z95.5 Presence of coronary angioplasty implant and graft; Z87.891 Personal history of nicotine dependence; J32.0 Chronic maxillary sinusitis; Z79.02 Long term (current) use of antithrombotics/antiplatelets